=== PATIENT | female | born 1965 | race Caucasian/White ===

== ENCOUNTER 2017-01-03 12:32 | Observation (INO) | payer BC ==
[~2017-01-03] VITALS: Ht 162.6 cm; Wt 73.1 kg
[~2017-01-03 12:32] MED LIST: ASCA500 PO; CBD OIL SL; CHOL1TAB46 PO; COEN100C11 PO; EPP3/2 IM; GABA-113 PO; KLN5X PO; LIRA18IN SQ; MAGNESIUM MALATE PO; METF-384 PO; METO-217 PO; PROB1TAB16 PO; TRAZ-120 PO; omega 3 PO
[2017-01-03] MEDS ORDERED: SODIUM CHLORIDE 0.9% 1000ML 1,000 ML IV SCH (13:17)
[2017-01-03 13:46] LABS: BASO % 0.7 %; BASO ABS # 0.03 K/uL (0-0.2); COMPLETE YES; HEMATOCRIT 37.9 % (37-47); LYMPH % 44.6 %; LYMPH ABS # 1.91 K/uL (1.2-3.4); MEAN CELL VOLUME 83.3 fL (80-100); MEAN CORPUSCULAR HEMOGLOBIN 27.9 pg (25-34); MEAN CORPUSCULAR HGB CONC 33.5 g/dl (32-36); MEAN PLATELET VOLUME 10.3 fL (7.4-10.4); MONO % 5.8 %; NEUT % 45.9 %; PLATELET COUNT 187 K/uL (130-400); RED BLOOD COUNT 4.55 M/uL (4.2-5.4); WHITE BLOOD COUNT 4.28 K/uL (4.8-10.8)
--- NOTE | 2017-01-03 13:46 | DIAGNOSTIC IMAGING REPORT ---
CHEST ONE VIEW PORTABLE CLINICAL HISTORY: Chest pain, dyspnea dyspnea COMPARISON STUDY: 11/16/2015 FINDINGS: The bones soft tissues and hemidiaphragms are normal. The cardiomediastinal silhouette is normal. The lungs are clear. The pulmonary vasculature is normal. IMPRESSION: Negative chest. Electronically signed by: Diony London M.D. 01/03/2017 1:44 PM Dictated Date/Time: 01/03/2017 1:44 PM
--- NOTE | 2017-01-03 13:56 | DIAGNOSTIC IMAGING REPORT ---
CT OF THE HEAD WITHOUT CONTRAST CLINICAL HISTORY: Stroke. Facial numbness and tingling. COMPARISON STUDY: No previous studies for comparison. CT DOSE: 537.48 mGy.cm TECHNIQUE: Helical axial images of the head were obtained without IV contrast. Automated exposure control was utilized for the study. FINDINGS: No acute intracranial hemorrhage, midline shift or mass effect is present. Ventricular system is normal. Basilar cisterns are patent. There are no extra-axial collections. Guthrie-white differentiation is maintained. There are no findings to suggest acute dural sinus thrombosis or acute territorial infarct. There are no significant calvarial abnormalities. Visualized portions of the sinuses and the mastoid air cells are clear. IMPRESSION: No acute intracranial findings. Electronically signed by: Jesse Chávez M.D. 01/03/2017 1:54 PM Dictated Date/Time: 01/03/2017 1:50 PM
[2017-01-03 14:08] LABS: INR 0.9 (0.9-1.1); PARTIAL THROMBOPLASTIN RATIO 0.9; PROTHROMBIN TIME (PATIENT) 10.1 SECONDS (9.0-12.0)
[2017-01-03 14:10] LABS: BLOOD UREA NITROGEN 6 mg/dl (7-18); BUN/CREATININE RATIO 7.4 (10-20); CALCIUM 8.9 mg/dl (8.5-10.1); CARBON DIOXIDE 28 mmol/L (21-32); CHLORIDE 104 mmol/L (98-107); CREATININE 0.82 mg/dl (0.60-1.20); GLUCOSE 221 mg/dl (70-99); POTASSIUM 3.7 mmol/L (3.5-5.1); SODIUM 140 mmol/L (136-145)
[2017-01-03 14:12] LABS: URINE APPEARANCE CLEAR (CLEAR); URINE BILIRUBIN NEG (NEG); URINE COLOR YELLOW; URINE EPITHELIAL CELL AUTO 20-30 /lpf (0-5); URINE NITRITE NEG (NEG); URINE PH 7.5 (4.5-7.5); URINE SPECIFIC GRAVITY 1.009 (1.000-1.030); UROBILINOGEN NEG (NEG); ZZUR CULT IF INDIC CLEAN CATCH NO
[2017-01-03 14:13] LABS: MANUAL MICROSCOPIC REQUIRED? NO; REVIEW REQ? NO
--- NOTE | 2017-01-03 14:21 | DIAGNOSTIC IMAGING REPORT ---
Venous Doppler left leg LEFT VENOUS DOPP LOWER EXT UNILAT CLINICAL HISTORY: Left let pain, no trauma pain. Edema. TECHNIQUE: Venous Doppler COMPARISON STUDY: None FINDINGS: Normal study IMPRESSION: Normal study Electronically signed by: Diony London M.D. 01/03/2017 2:19 PM Dictated Date/Time: 01/03/2017 2:18 PM
[2017-01-03] MEDS ORDERED: MULTTAB58 PO (14:45)
[2017-01-03] MEDS ORDERED: OMEG12006 PO (14:45)
[2017-01-03 14:49] LABS: LYME DISEASE AB IGG NEG (NEG)
[2017-01-03 14:52] LABS: LYME DISEASE AB IGM NEG (NEG)
[2017-01-03] MEDS ORDERED: NITROGLYCERIN 0.4 MG SL PER TAB CHARGE SL PRN (15:30)
[2017-01-03] MEDS ORDERED: ALUMINUM/MAGNESIUM/SIMETH (MAALOX MAX) 30 ML UDC PO PRN (15:30)
[2017-01-03] MEDS ORDERED: ACETAMINOPHEN 325 MG TAB PO PRN (15:30)
[2017-01-03] MEDS ORDERED: MAGNESIUM HYDROXIDE SUSP 30 ML UDC PO PRN (15:30)
[2017-01-03] MEDS ORDERED: ONDANSETRON INJ 2 MG/ML 2 ML VIAL IV PRN (15:30)
[2017-01-03] MEDS ORDERED: POLYETHYLENE (MIRALAX) 17 GM PACK PO PRN (15:30)
[2017-01-03] MEDS ORDERED: ACETAMINOPHEN 325 MG TAB ONE (15:53)
--- NOTE | 2017-01-03 16:11 | History and Physical ---
History & Physical Date & Time of Service: January 03, 2017 at 15:42 Chief Complaint: Numbness/Tingling Face/L Side Joint Pain, Fatigue, Primary Care Physician: Dane Reddy D.O. History of Present Illness Source: patient, family Patient is a pleasant 51 y/o female, with PMHx of lyme disease w/ carditis, chronic pain disorder, depression and T2DM who presented to the ED because of body numbness/tingling and left-sided facial numbness. Patient admits to complete left sided facial numbness, stating "it feels like I was injected with lidocaine and it is wearing off." Facial symptoms began today. Patient was diagnosed with lyme disease in 2013. Since that time, patient has been experiencing chronic total body pain. However, patient states that over the last couple of months, pain has started to worsen. Then, over the last three days, she has noticed the pain becoming very severe. Patient admits to numbness and tingling of the left side of the body. However, she states that the left- sided numbness and tingling is today. Over the last couple of days, it was on both sides of the body. She figured it was just a flare of her chronic pain, until today when she experienced left sided facial numbness, which is what prompted her to come to the ED. According to the , patient was having difficulty ambulating today. She admits to difficulty with focusing. She denies any recent illnesses. She denies history of DVT/PE, TIA/CVA. She denies any confusion, vision changes, speech difficulty, facial droop. +epigastric/central chest discomfort; this has been ongoing for patient for a couple of months now. Pain does not radiate. She denies any alleviating/aggravating factors. +nausea. +worsening body aches/pain. She denies any recent tick bites or rashes. Patient denies any fever, chills, sweats, lightheadedness, dizziness, vision changes, palpitations, edema, SOB, wheezing, cough, vomiting, diarrhea, urinary symptoms , melena, anxiety/depression, active bleeding, or new skin discoloration/ changes. Past Medical/Surgical History Medical Problems: lyme disease w/ carditis chronic pain disorder T2DM depression Surgical Problems: (1) Hx of cardiac cath Status: Chronic (2) S/P cholecystectomy Status: Chronic (3) S/P partial colectomy Permanent Comment: For Diverticulum 2013 Status: Chronic (4) S/P tubal ligation Status: Chronic Family History Cancer FATHER Diabetes mellitus FATHER MOTHER SISTER FH: heart disease FATHER FHx: gallbladder disease FHx: lung disease MOTHER Hypertension FATHER MOTHER Kidney disease Kidney stones Social History Smoking Status: Never Smoker Drug Use: none Marital Status: Housing status: lives with family Occupational Status: unemployed Allergies Coded Allergies: Bee Venom (Verified Allergy, Severe, LOCALIZED SWELLING, 01/03/17) Moxifloxacin (Verified Allergy, Mild, RASH, 01/03/17) Home Medications Scheduled Ascorbic Acid (Vitamin C), 1,000 MG PO QDL Cholecalciferol (Vitamin D3), 5,000 UNITS PO DAILY Clonazepam (Clonazepam), 0.5 MG PO HS Coenzyme Q10 (Ubidecarenone) (Coq-10), 100 MG PO QDL Epinephrine (Epipen), 0.3 MG IM UD Gabapentin (Neurontin), 600 MG PO TID Liraglutide (Victoza), 1.8 SQ QAM Metformin Hcl (Glucophage), 1,000 MG PO BID Metoprolol Succinate (Toprol Xl), 50 MG PO DAILY Multiple Vitamin (Multivitamin), 1 TAB PO DAILY Coventry-3 Fatty Acids (Coventry 3), 1 CAP PO DAILY Probiotic Product (Probiotic), 2 TAB PO QAM Trazodone Hcl (Desyrel), 50 MG PO HS Physical Exam Vital Signs Date Time Temp Pulse Resp B/P Pulse Ox O2 Delivery O2 Flow Rate FiO2 01/03/17 15:16 99 01/03/17 14:54 96 132/92 95 01/03/17 13:57 97 Room Air 01/03/17 12:40 36.6 102 16 136/87 96 Room Air General Appearance: no apparent distress Head: normocephalic, atraumatic Eyes: normal inspection, PERRL ENT: hearing grossly normal Neck: supple Respiratory/Chest: lungs clear, no respiratory distress, no accessory muscle use Cardiovascular: regular rate, rhythm Abdomen/GI: normal bowel sounds, non tender, soft Extremities/Musculoskelatal: no calf tenderness, no pedal edema Neurologic/Psych: no motor/sensory deficits, alert, normal mood/affect, oriented x 3 Skin: normal color, warm/dry, no rash Diagnostics Laboratory Results Results Past 24 Hours Test 5/12/17 13:30 01/03/17 13:31 01/03/17 13:32 01/03/17 13:40 Range/Units White Blood Count 4.28 4.8-10.8 K/uL Red Blood Count 4.55 4.2-5.4 M/uL Hemoglobin 12.7 12.0-16.0 g/dL Hematocrit 37.9 37-47 % Mean Corpuscular Volume 83.3 80-100 fL Mean Corpuscular Hemoglobin 27.9 25-34 pg Mean Corpuscular Hemoglobin Concent 33.5 32-36 g/dl Platelet Count 187 130-400 K/uL Mean Platelet Volume 10.3 7.4-10.4 fL Neutrophils (%) (Auto) 45.9 % Lymphocytes (%) (Auto) 44.6 % Monocytes (%) (Auto) 5.8 % Eosinophils (%) (Auto) 3.0 % Basophils (%) (Auto) 0.7 % Neutrophils # (Auto) 1.96 1.4-6.5 K/uL Lymphocytes # (Auto) 1.91 1.2-3.4 K/uL Monocytes # (Auto) 0.25 0.11-0.59 K/uL Eosinophils # (Auto) 0.13 0-0.5 K/uL Basophils # (Auto) 0.03 0-0.2 K/uL RDW Standard Deviation 37.4 36.4-46.3 fL RDW Coefficient of Variation 12.3 11.5-14.5 % Immature Granulocyte % (Auto) 0.0 % Immature Granulocyte # (Auto) 0.00 0.00-0.02 K/uL Prothrombin Time 10.1 9.0-12.0 SECONDS Prothromb Time International Ratio 0.9 0.9-1.1 Activated Partial Thromboplast Time 22.5 21.0-31.0 SECONDS Partial Thromboplastin Ratio 0.9 D-Dimer < 190 0-500 ug/L FEU Sodium Level 140 136-145 mmol/L Potassium Level 3.7 3.5-5.1 mmol/L Chloride Level 104 98-107 mmol/L Carbon Dioxide Level 28 21-32 mmol/L Anion Gap 8.0 3-11 mmol/L Blood Urea Nitrogen 6 7-18 mg/dl Creatinine 0.82 0.60-1.20 mg/dl Est Creatinine Clear Calc Drug Dose 80.4 ml/min Estimated GFR () 96.7 Estimated GFR (Non- 83.4 BUN/Creatinine Ratio 7.4 10-20 Random Glucose 221 70-99 mg/dl Calcium Level 8.9 8.5-10.1 mg/dl Total Creatine Kinase 52 26-192 U/L Creatine Kinase MB < 0.5 0.5-3.6 ng/ml Creatine Kinase MB Ratio 0-3.0 Troponin I < 0.015 0-0.045 ng/ml Lyme Disease IgG Antibody NEG NEG Lyme Disease IgM Antibody NEG NEG Bedside Prothrombin Time INR 0.9 0.9-1.1 Bedside Glucose 213 70-90 mg/dl Urine Color YELLOW Urine Appearance CLEAR CLEAR Urine pH 7.5 4.5-7.5 Urine Specific [place] 1.009 1.000-1.030 Urine Protein NEG NEG Urine Glucose (UA) NEG NEG Urine Ketones NEG NEG Urine Occult Blood NEG NEG Urine Nitrite NEG NEG Urine Bilirubin NEG NEG Urine Urobilinogen NEG NEG Urine Leukocyte Esterase MODERATE NEG Urine WBC (Auto) 1-5 0-5 /hpf Urine RBC (Auto) 0-4 0-4 /hpf Urine Hyaline Casts (Auto) 0 0-5 /lpf Urine Epithelial Cells (Auto) 20-30 0-5 /lpf Urine Bacteria (Auto) NEG NEG Urine Test NEG NEG Diagnostic Radiology Venous Doppler left leg LEFT VENOUS DOPP LOWER EXT UNILAT CLINICAL HISTORY: Left let pain, no trauma pain. Edema. TECHNIQUE: Venous Doppler COMPARISON STUDY: None FINDINGS: Normal study IMPRESSION: Normal study Electronically signed by: Diony London M.D. 01/03/2017 2:19 PM Dictated Date/Time: 01/03/2017 2:18 PM The status of this report is Signed. Draft = Not yet reviewed or approved by Radiologist. Signed = Reviewed and approved by Radiologist. CT OF THE HEAD WITHOUT CONTRAST CLINICAL HISTORY: Stroke. Facial numbness and tingling. COMPARISON STUDY: No previous studies for comparison. CT DOSE: 537.48 mGy.cm TECHNIQUE: Helical axial images of the head were obtained without IV contrast. Automated exposure control was utilized for the study. FINDINGS: No acute intracranial hemorrhage, midline shift or mass effect is present. Ventricular system is normal. Basilar cisterns are patent. There are no extra-axial collections. Guthrie-white differentiation is maintained. There are no findings to suggest acute dural sinus thrombosis or acute territorial infarct. There are no significant calvarial abnormalities. Visualized portions of the sinuses and the mastoid air cells are clear. IMPRESSION: No acute intracranial findings. Electronically signed by: Jesse Chávez M.D. 01/03/2017 1:54 PM Dictated Date/Time: 01/03/2017 1:50 PM The status of this report is Signed. Draft = Not yet reviewed or approved by Radiologist. Signed = Reviewed and approved by Radiologist. CHEST ONE VIEW PORTABLE CLINICAL HISTORY: Chest pain, dyspnea dyspnea COMPARISON STUDY: 11/16/2015 FINDINGS: The bones soft tissues and hemidiaphragms are normal. The cardiomediastinal silhouette is normal. The lungs are clear. The pulmonary vasculature is normal. IMPRESSION: Negative chest. Electronically signed by: Diony London M.D. 01/03/2017 1:44 PM Dictated Date/Time: 01/03/2017 1:44 PM The status of this report is Signed. Draft = Not yet reviewed or approved by Radiologist. Signed = Reviewed and approved by Radiologist. EKG SVEN PATEL ID:[id number] 03-JAN-2017 13:53:56 [facility] Normal sinus rhythm Low voltage QRS Borderline ECG When compared with ECG of 16-AUG-2016 08:27, No significant change was found 25mm/s 10mm/mV 150Hz 8.0 SP2 12SL 241 RACHNA: 13 Referred by: Referred Self Unconfirmed Vent. rate 99 BPM PA interval 172 ms QRS duration 78 ms QT/QTc 372/477 ms P-R-T axes 27 34 47 1965 (51 yr) Female 1lb Room: Loc:15 Restaurant Line Cook:CLAIR Perez ind: Impression Assessment and Plan 51 y/o female, with PMHx of lyme disease w/ carditis, chronic pain disorder, depression and T2DM who presented to the ED because of body numbness/tingling and left-sided facial numbness. Numbness/tingling and left sided facial numbness, ?secondary to TIA/CVA vs. lyme disas: - Admit to tele observation for cardiac monitoring - Trend cardiac enzymes- initial trop negative - CT of head and CXR- unremarkable - Obtain brain MRI - Lower extremity US- negative for DVT - Lyme IgG and IgM- negative - UA unremarkable - Neuro checks q4 hrs - Check b12/folate, TSH, CRP, and ESR - PT/OT evaluations - Consult neurology, appreciate recommendations - Consult ID, appreciate recommendations T2DM: - Hold Metformin 1000 mg BID - BSG ACHS w/ sliding insulin scale - Check ha1c h/o lyme disease w/ lyme carditis: - Metoprolol 50 mg daily - Obtain ECHO Chronic pain disorder: - Continue Gabapentin 600 mg TID Depression: Clonazepam 0.5 mg HS, Trazodone 50 mg HS GI Prophylaxis: Protonix daily, Maalox PRN, IV Zofran PRN, Colace and/or Milk of Mag PRN DVT prophylaxis: Lovenox 40 mg SQ q24 hrs, VALERIA and SCDs Code Status: LEVEL I, FULL Dispo: From home, lives w/ family- no discharge needs anticipated Level of Care Telemetry Resuscitation Status FULL RESUSCITATION VTE Prophylaxis VTE Risk Assessment Done? Y/N: Yes Risk Level: Moderate Given or contraindicated: Enoxaparin (Lovenox)SQ, T.E.D. Stockings, SCD's
[2017-01-03] MEDS ORDERED: LORAZEPAM 2 MG/ML 1 ML VIAL IV ONE (16:30)
[2017-01-03] MEDS: INSULIN ASPART 100 UNITS/ML 3 ML PEN SC SCH ×2 (16:30→21:13)
[2017-01-03] MEDS ORDERED: GLUCOSE 40% GEL 15 GM TUBE PO PRN (16:45)
[2017-01-03] MEDS ORDERED: GLUCOSE 10 TABS/TUBE PO PRN (16:45)
[2017-01-03] MEDS ORDERED: GLUCAGON FOR INJ 1 MG VIAL SQ PRN (16:45)
[2017-01-03] MEDS ORDERED: DEXTROSE 50% 50 ML SYR IV PRN (16:45)
[2017-01-03] MEDS ORDERED: IV FLUIDS COMPLETED PRN (17:15)
[2017-01-03] MEDS ORDERED: GADAVIST IV PRN (17:15)
--- NOTE | 2017-01-03 17:23 | DIAGNOSTIC IMAGING REPORT ---
Brain MRI WITH AND WITHOUT CONTRAST HISTORY: left body numbness TECHNIQUE: Multiplanar multisequence MRI of the brain was performed both before and after the intravenous administration of contrast. COMPARISON STUDY: Head CT 01/03/2017. FINDINGS: There are no areas of restricted diffusion to suggest acute infarction. The midline structures are intact. The paranasal sinuses are clear. The mastoid air cells are clear. The ventricles and sulci are within normal limits for age. There is no mass, hematoma, midline shift. The major vascular flow-voids at the skull base are well maintained. Postcontrast sequences show no areas of abnormal enhancement. IMPRESSION: No acute intracranial abnormality. Electronically signed by: Mehdi Culp M.D. 01/03/2017 5:22 PM Dictated Date/Time: 01/03/2017 5:18 PM
[2017-01-03] MEDS ORDERED: NURSING VERBAL MED ORDER ONE ×3 (18:00→21:45)
[2017-01-03] MEDS ORDERED: NAPROXEN 250 MG TAB PO PRN (18:15)
[2017-01-03 18:21] VITALS: BP 127/85; PULSE 98; TEMP 36.4; O2SAT 98; Ht 162.6 cm; Wt 73.1 kg
[2017-01-03] MEDS: TRAZODONE HCL 50 MG TAB PO SCH (20:22)
[2017-01-03] MEDS: GABAPENTIN 600 MG TAB PO SCH (20:22)
[2017-01-03] MEDS: CLONAZEPAM 0.5 MG TAB PO SCH (20:24)
[2017-01-03] MEDS ORDERED: PNEUMOCOCCAL POLYSACCHARIDES 25 MCG/0.5 ML VIAL/SYR IM. ONE (21:00)
[2017-01-03] MEDS ORDERED: PNEUMOCOCCAL ADMINISTRATION CHARGE ONE (21:00)
[2017-01-03] MEDS: ENOXAPARIN 40 MG/0.4 ML SYR SQ SCH (21:00)
[2017-01-03] MEDS ORDERED: HEPARIN SOD 5000 UNIT/0.5 ML CARP SQ SCH (21:00)
[2017-01-03] MEDS: TRAMADOL HCL 50 MG TAB PO PRN (21:54)
[2017-01-03 23:30] VITALS: BP 109/75; PULSE 94; TEMP 36.5; O2SAT 97
--- NOTE | 2017-01-03 23:36 | EMERGENCY ROOM VISIT NOTE ---
History First contact with patient: 13:00 Chief Complaint: ILLNESS Stated Complaint: STROKE-LIKE SYMPTOMS History of Present Illness The patient is a 51 year old female who presents to the Emergency Room via private vehicle coming by with complaints of "numbness/tingling face, left side joint pain, fatigue". The patient states that she is here because she is concerned about the numbness in left side of her face which began 4-5 days ago. She notes that it was across the lower portion of her face, and yesterday seemed dissipate, however it worsened again last night. She states that she also has intense pain in the bilateral legs, left worse than right. She notes the pain as a crushing sensation. She also felt like someone was standing on her leg. She then states that today she felt like there was novocaine injected in the left side of her face, and shooting pain in her left leg down to her foot and her feet feel cold. She notes that she has never had this before, and denies any numbness or weakness in the past. She also felt like the left side of her face looked on, and discolored as well as her eye was also cold. She states that she has a significant history of Lyme carditis, as well as idiopathic heart failure. She has been pulse dosed on medication by a doctor from [facility] for chronic Lyme disease. She is not taking any medication currently for the Lyme disease. There is associated chest pain, which is a tightness under the epigastric region that started a few weeks ago. There is also associated shortness of breath also which began many weeks ago. The patient denies any history of blood clots, abdominal pain, recent falls or injuries, history of stroke. Review of Systems A complete 10-point Review of Systems was discussed with the patient, with pertinent positives and negatives listed in the History of Present Illness. All remaining Review of Systems questions can be considered negative unless otherwise specified. Past Medical/Surgical History Medical Problems: (1) Depression (2) Diabetes mellitus type 2 in nonobese (3) Fibromyalgia (4) HTN (hypertension) (5) Hypotension, iatrogenic (6) Lyme disease (7) Stroke-like symptoms (8) Tachycardia (9) Total body pain Surgical Problems: (1) Hx of cardiac cath (2) S/P cholecystectomy (3) S/P partial colectomy (4) S/P tubal ligation Family History Cancer FATHER Diabetes mellitus FATHER MOTHER SISTER FH: heart disease FATHER FHx: gallbladder disease FHx: lung disease MOTHER Hypertension FATHER MOTHER Kidney disease Kidney stones Social History Smoking Status: Unknown if Ever Smoked Alcohol Use: none Drug Use: none Marital Status: Housing Status: lives with family Occupation Status: unemployed Current/Historical Medications Scheduled Ascorbic Acid (Vitamin C), 1,000 MG PO QDL Cholecalciferol (Vitamin D3), 5,000 UNITS PO DAILY Clonazepam (Clonazepam), 0.5 MG PO HS Coenzyme Q10 (Ubidecarenone) (Coq-10), 100 MG PO QDL Epinephrine (Epipen), 0.3 MG IM UD Gabapentin (Neurontin), 600 MG PO TID Liraglutide (Victoza), 1.8 SQ QAM Metformin Hcl (Glucophage), 1,000 MG PO BID Metoprolol Succinate (Toprol Xl), 50 MG PO DAILY Multiple Vitamin (Multivitamin), 1 TAB PO DAILY [place]-3 Fatty Acids ([place] 3), 1 CAP PO DAILY Probiotic Product (Probiotic), 2 TAB PO QAM Trazodone Hcl (Desyrel), 50 MG PO HS Allergies Coded Allergies: Bee Venom (Verified Allergy, Severe, LOCALIZED SWELLING, 01/03/17) Moxifloxacin (Verified Allergy, Mild, RASH, 01/03/17) Physical Exam Vital Signs Date Time Temp Pulse Resp B/P Pulse Ox O2 Delivery O2 Flow Rate FiO2 01/03/17 16:00 149/87 01/03/17 15:52 94 17 98 01/03/17 15:37 95 22 98 01/03/17 15:32 103 20 97 01/03/17 15:30 155/92 01/03/17 15:16 99 01/03/17 15:00 131/88 01/03/17 14:54 96 132/92 95 01/03/17 13:57 97 Room Air 01/03/17 12:40 36.6 102 16 136/87 96 Room Air Pain Rating (0-10): 7.0 Physical Exam VITAL SIGNS - Vital signs and nursing notes were reviewed. Patient is afebrile , normotensive, and tachycardic at a rate of 102 bpm, and is saturating well on room air 96%. GENERAL -51-year-old female appearing her stated age who is in no acute distress. Communicates well with provider and answers questions appropriately. SKIN - Without rashes. HEAD - NC/AT. EYES - PERRL with EOMI bilaterally. Sclera anicteric. Palpebral conjunctiva pink and moist with no injection noted. EARS - No deformities of external structures noted on gross examination bilaterally. No pain elicited with palpation of the tragus bilaterally. External auditory canals without discharge or otorrhea. Tympanic membranes pearly guthrie without retraction or bulging. No fluid or purulent material visualized behind the TM. Handle of malleus, umbo, cone of light, pars tensa/ flaccid all easily visualized. NOSE - Midline and without cyanosis. No epistaxis or purulent drainage noted. Septum midline without deviation or septal hematoma noted. MOUTH/OROPHARYNX - Without perioral cyanosis. Buccal mucosa pink and moist and without leukoplakia. Tongue midline with equal elevation of palate bilaterally. No tonsillar hypertrophy, erythema, or exudates noted. [] dentition noted. NECK - Neck with FROM. Supple to palpation. No lymphadenopathy noted. No nuchal rigidity. LUNGS - Chest wall symmetric without accessory muscle use, intercostals retractions, or central cyanosis. Normal vesicular breath sounds CTA B/L. No wheezes, rales, or rhonchi appreciated. CARDIAC - RRR with S1/S2. No murmur, rubs, or gallops appreciated. ABDOMEN - Abdominal contour without pulsations or visible masses. BS normoactive all four quadrants. No tenderness, palpable masses, hepatosplenomegaly, or ascites noted. EXTREMITIES - No clubbing or peripheral cyanosis. No pretibial edema present. +3 /5 radial, posterior tibial, and dorsalis pedis pulses palpated throughout. +5/ 5 strength noted in UE/LE bilaterally. Print Finisher strength symmetric bilaterally. NEUROLOGIC - Cranial nerves II through XII grossly intact. Sensory intact to light touch throughout. Unable to elicit patellar reflexes. PSYCH - Pt is very pleasant and interacts well with examiner. Medical Decision & Procedures ER Provider Diagnostic Interpretation: CHEST ONE VIEW PORTABLE CLINICAL HISTORY: Chest pain, dyspnea dyspnea COMPARISON STUDY: 11/16/2015 FINDINGS: The bones soft tissues and hemidiaphragms are normal. The cardiomediastinal silhouette is normal. The lungs are clear. The pulmonary vasculature is normal. IMPRESSION: Negative chest. Electronically signed by: Diony London M.D. 01/03/2017 1:44 PM Dictated Date/Time: 01/03/2017 1:[address] OF THE HEAD WITHOUT CONTRAST CLINICAL HISTORY: Stroke. Facial numbness and tingling. COMPARISON STUDY: No previous studies for comparison. CT DOSE: 537.48 mGy.cm TECHNIQUE: Helical axial images of the head were obtained without IV contrast. Automated exposure control was utilized for the study. FINDINGS: No acute intracranial hemorrhage, midline shift or mass effect is present. Ventricular system is normal. Basilar cisterns are patent. There are no extra-axial collections. Guthrie-white differentiation is maintained. There are no findings to suggest acute dural sinus thrombosis or acute territorial infarct. There are no significant calvarial abnormalities. Visualized portions of the sinuses and the mastoid air cells are clear. IMPRESSION: No acute intracranial findings. Electronically signed by: Jesse Chávez M.D. 01/03/2017 1:54 PM Venous Doppler left leg LEFT VENOUS DOPP LOWER EXT UNILAT CLINICAL HISTORY: Left let pain, no trauma pain. Edema. TECHNIQUE: Venous Doppler COMPARISON STUDY: None FINDINGS: Normal study IMPRESSION: Normal study Electronically signed by: Diony London M.D. 01/03/2017 2:19 PM Dictated Date/Time: 01/03/2017 2:18 PM Laboratory Results 01/03/17 13:30 Red Blood Count 4.55, Mean Corpuscular Volume 83.3, Mean Corpuscular Hemoglobin 27.9, Mean Corpuscular Hemoglobin Concent 33.5, Mean Platelet Volume 10.3, Neutrophils (%) (Auto) 45.9, Lymphocytes (%) (Auto) 44.6, Monocytes (%) (Auto) 5.8, Eosinophils (%) (Auto) 3.0, Basophils (%) (Auto) 0.7, Neutrophils # (Auto) 1.96, Lymphocytes # (Auto) 1.91, Monocytes # (Auto) 0.25, Eosinophils # (Auto) 0.13, Basophils # (Auto) 0.03 01/03/17 13:30 Test 01/03/17 13:30 01/03/17 13:31 01/03/17 13:40 White Blood Count 4.28 K/uL (4.8-10.8) Red Blood Count 4.55 M/uL (4.2-5.4) Hemoglobin 12.7 g/dL (12.0-16.0) Hematocrit 37.9 % (37-47) Mean Corpuscular Volume 83.3 fL (80-100) Mean Corpuscular Hemoglobin 27.9 pg (25-34) Mean Corpuscular Hemoglobin Concent 33.5 g/dl (32-36) Platelet Count 187 K/uL (130-400) Mean Platelet Volume 10.3 fL (7.4-10.4) Neutrophils (%) (Auto) 45.9 % Lymphocytes (%) (Auto) 44.6 % Monocytes (%) (Auto) 5.8 % Eosinophils (%) (Auto) 3.0 % Basophils (%) (Auto) 0.7 % Neutrophils # (Auto) 1.96 K/uL (1.4-6.5) Lymphocytes # (Auto) 1.91 K/uL (1.2-3.4) Monocytes # (Auto) 0.25 K/uL (0.11-0.59) Eosinophils # (Auto) 0.13 K/uL (0-0.5) Basophils # (Auto) 0.03 K/uL (0-0.2) RDW Standard Deviation 37.4 fL (36.4-46.3) RDW Coefficient of Variation 12.3 % (11.5-14.5) Immature Granulocyte % (Auto) 0.0 % Immature Granulocyte # (Auto) 0.00 K/uL (0.00-0.02) Prothrombin Time 10.1 SECONDS (9.0-12.0) Prothromb Time International Ratio 0.9 (0.9-1.1) Activated Partial Thromboplast Time 22.5 SECONDS (21.0-31.0) Partial Thromboplastin Ratio 0.9 D-Dimer < 190 ug/L FEU (0-500) Anion Gap 8.0 mmol/L (3-11) Est Creatinine Clear Calc Drug Dose 80.4 ml/min Estimated GFR () 96.7 Estimated GFR (Non- 83.4 BUN/Creatinine Ratio 7.4 (10-20) Calcium Level 8.9 mg/dl (8.5-10.1) Total Creatine Kinase 52 U/L (26-192) Lyme Disease IgG Antibody NEG (NEG) Lyme Disease IgM Antibody NEG (NEG) Bedside Prothrombin Time INR 0.9 (0.9-1.1) Urine Color YELLOW Urine Appearance CLEAR (CLEAR) Urine pH 7.5 (4.5-7.5) Urine Specific [place] 1.009 (1.000-1.030) Urine Protein NEG (NEG) Urine Glucose (UA) NEG (NEG) Urine Ketones NEG (NEG) Urine Occult Blood NEG (NEG) Urine Nitrite NEG (NEG) Urine Bilirubin NEG (NEG) Urine Urobilinogen NEG (NEG) Urine Leukocyte Esterase MODERATE (NEG) Urine WBC (Auto) 1-5 /hpf (0-5) Urine RBC (Auto) 0-4 /hpf (0-4) Urine Hyaline Casts (Auto) 0 /lpf (0-5) Urine Epithelial Cells (Auto) 20-30 /lpf (0-5) Urine Bacteria (Auto) NEG (NEG) Urine Test NEG (NEG) Medications Administered Medications (Trade) Dose Ordered Sig/Radha Route Start Time Stop Time Status Last Admin Dose Admin Sodium Chloride (Nss 1000ml) 1,000 ml @ 50 mls/hr Q20H IV 01/03/17 13:17 01/03/17 17:48 DC 01/03/17 14:52 50 MLS/HR Insulin Aspart (novoLOG ASPART) SLIDING SCALE G... ACHS SC 01/03/17 16:00 02/02/17 15:59 01/03/17 21:13 2 UNITS Acetaminophen (Tylenol Tab) 650 mg STK-MED ONCE .ROUTE 01/03/17 15:53 01/03/17 15:54 DC 01/03/17 15:55 650 MG Medical Decision Patient was seen and evaluated as above. After obtaining a thorough history and physical examination IV access was initiated and the above workup was performed. Stat CT of the head was obtained, and stroke workup was also initiated. Patient has had symptoms for duration of time of which is greater than any indication for TPA. CBC reveals white blood cell count low at 4.28, otherwise unremarkable. Coagulation studies unremarkable. D-dimer negative. CMP reveals BUN low at 6, glucose of 221, otherwise unremarkable. Troponin negative. Urine with moderate leukocytes, and 20-30 epithelial cells, urine test negative. Lyme screen is negative. The patient and state that Lyme screen sent been negative 5, despite positive tests intermittently. CT scan of the head, chest x-ray and ultrasound left lower extremity secondary to leg pain was also negative. Results of these as above. I agree with radiologist findings. I concerned that the patient at this time is either experiencing a TIA, or perhaps Lyme induced symptomatology of which will need further workup. The case was discussed with my attending, and subsequently with the hospitalist. Please refer to further documentation regarding the patient's stay. In evaluation treatment this patient following differential diagnoses were entertained: Lyme carditis, CVA, TIA, AL, PE, migraine, acute intracranial abnormality, among others. Impression Primary Impression: Chest pain Additional Impression: Stroke-like symptoms Departure Information Dispostion Admitted as an inpatient Condition FAIR Referrals Dane Reddy D.O. (PCP) Forms WORK / SCHOOL INSTRUCTIONS, HOME CARE DOCUMENTATION FORM, IMPORTANT VISIT INFORMATION Patient Instructions My [facility] Problem Qualifiers
[2017-01-04] VITALS (8 sets, daily range): BP systolic 101–135; BP diastolic 68–86; PULSE 100–106; TEMP 36.5–37.1; O2SAT 95–97
[2017-01-04 05:39] LABS: HEMATOCRIT 36.3 % (37-47); MEAN CELL VOLUME 84.4 fL (80-100); MEAN CORPUSCULAR HEMOGLOBIN 28.1 pg (25-34); MEAN CORPUSCULAR HGB CONC 33.3 g/dl (32-36); MEAN PLATELET VOLUME 10.1 fL (7.4-10.4); PLATELET COUNT 178 K/uL (130-400); WHITE BLOOD COUNT 4.17 K/uL (4.8-10.8)
[2017-01-04 06:05] LABS: BUN/CREATININE RATIO 13.8 (10-20); CALCIUM 8.6 mg/dl (8.5-10.1); CARBON DIOXIDE 28 mmol/L (21-32); CHLORIDE 106 mmol/L (98-107); CREATININE 0.82 mg/dl (0.60-1.20); GLUCOSE 182 mg/dl (70-99); MAGNESIUM 1.8 mg/dl (1.8-2.4); POTASSIUM 3.8 mmol/L (3.5-5.1); SODIUM 140 mmol/L (136-145)
[2017-01-04 06:16] LABS: C-REACTIVE PROTEIN < 0.29 mg/dl (0-0.29)
[2017-01-04 07:09] LABS: BLOOD UREA NITROGEN 11 mg/dl (7-18)
[2017-01-04 07:40] LABS: ESTIMATED AVERAGE GLUCOSE 220 mg/dl; HA1C FLAG Normal (Normal)
[2017-01-04] MEDS: PANTOprazole SOD 40 MG TAB PO SCH (08:50)
[2017-01-04] MEDS: MULTIVITAMIN TAB PO SCH (08:51)
[2017-01-04] MEDS: METOPROLOL SUCC 50MG EXT REL TAB PO SCH (08:51)
[2017-01-04] MEDS: GABAPENTIN 600 MG TAB PO SCH ×2 (08:51→13:54)
[2017-01-04] MEDS: INSULIN ASPART 100 UNITS/ML 3 ML PEN SC SCH ×4 (08:53→21:00)
--- NOTE | 2017-01-04 08:59 | Neurology Consultation ---
Neurology Consultation Date of Consultation: January 04, 2017. Attending Physician: Rey Lam MD, PhD Primary Care Physician: Dane Reddy D.O. Reason for Consultation: Patient is a 51-year-old, who was asked to see at the request of Eri Patel PA-C and Dr. Lam, for neurologic consultation regarding left-sided pain and numbness with multiple symptoms. History of Present Illness Source: patient, caregiver, clinic records, hospital records I first saw this patient in October 2013 as a new patient in the office. She was having roughly 5 years of chronic fatigue, generalized weakness, arthralgias, and myalgia. She had headaches as well. Testing revealed a generalized polyneuropathy and we last saw her in June 2016. Her diagnosis at that time included a left C8 cervical radiculopathy with improved headaches on topiramate. She has chronic arthralgias and myalgias over the diagnoses of fibromyalgia and has a generalized polyneuropathy secondary to diabetes. She is also diagnosed by a physician in [facility] with chronic Lyme disease and was diagnosed with Lyme carditis. She had some idiopathic heart failure. She tells me that no Lyme titer was actually positive but was diagnosed also with Babesiosis and Bartonella. She was given multiple pulses of oral antibiotics. There was discussion that the antibiotics could cross the blood brain barrier but she was never given IV Rocephin. She has not had antibiotics for at least 6 months. The patient continues with chronic symptoms. It will wax and wane but never resolved. She will have "good days", lasting up to 4-5 days, consisting of her ability to do some light routine activities and "putter" around the house or yard. She will then have "bad days", lasting up to 45 days, which consist of severe pain in her joints and spine, increased fatigue, and deep bone-like pain which make her essentially rest all day in bed or chair. This pain is very achy and intense and centers in the hips, ankles, elbows, knees as well as the low back and neck. Her muscles can be somewhat achy and she feels somewhat weak in general. She has severe fatigue and easy fatigability. Currently, she is not getting much in the way of headaches. Her mood is reasonable, especially considering her chronic symptoms, and her memory is "foggy". gabapentin is of questionable help and she has been on it for a long time. She has no double vision, incontinence of urine, or significant balance problems. Over the last 3 months she's had increased pain and tingling in her limbs bilaterally she has had increased fatigue as well. Over the last 4-5 days she' s had intense pain in the legs of a crushing variety left greater than right side. There is a mild increased pain in the arms left greater than right side but no face pain. She's had increase in numbness and tingling in her left face and the left arm and leg. It is not on the right side. The numbness and tingling was quite intense on the morning of January 03 when she awoke. She arrived at the emergency room on January 03 at 1240 hours with a temperature 36.6, pulse 102, respiratory rate 16, blood pressure 136/87, and O2 saturation 96%. Neurologic examination was described as unremarkable. Chest x-ray was unremarkable. CT scan of the head showed no acute changes. Left lower extremity venous Doppler was unremarkable. CBC was normal and a sedimentation rate was 2. Chem profile was unremarkable except for glucose of 213. TSH was normal at 3.3 and Lyme antibody titers, IgM and IgG, or negative. MRI of the brain was unremarkable with no stroke or abnormality seen. I reviewed this film and concur. She feels better this morning. She has much improved pain on the left side and has much improved numbness. The left face has some very slight residual numbness. Past Medical/Surgical History Medical Problems: (1) Chest pain Status: Acute (2) Exertional dyspnea Status: Acute (3) Weakness Status: Acute Diabetes on oral medication Hypertension History of chronic Lyme disease and Lyme carditis post antibiotic treatment. History of depression currently improved History of severe headaches, currently improved Post left breast biopsy, benign, cholecystectomy, tubal ligation, left shoulder arthroscopically in July 2016 and right ovarian cystectomy in 2012 Family History Mother is alive at age 70 with COPD, diabetes, and hypertension. Father age 70 from myelodysplastic syndrome. He also had history of colon cancer, diabetes, and heart disease Social History Patient quit cigarette smoking 18 years ago. She will have 2 or 3 glasses of wine per week at most. 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 Smoking Status: Former smoker Smokeless Tobacco Use: No Alcohol Use: occasionally Drug Use: none Marital Status: Housing Status: lives with family Occupation Status: unemployed, disabled Allergies Coded Allergies: Bee Venom (Verified Allergy, Severe, LOCALIZED SWELLING, 01/03/17) Moxifloxacin (Verified Allergy, Mild, RASH, 01/03/17) Current Inpatient Medications Current Inpatient Medications Medications (Trade) Dose Ordered Sig/Radha Route Start Time Stop Time Status Last Admin Dose Admin Acetaminophen (Tylenol Tab) 650 mg Q4H PRN PO 01/03/17 15:30 02/02/17 15:29 Al Hydrox/Mg Hydrox/Simethicone (Maalox Max Susp) 15 ml Q4H PRN PO 01/03/17 15:30 02/02/17 15:29 Magnesium Hydroxide (Milk Of Magnesia Susp) 30 ml Q12H PRN PO 01/03/17 15:30 02/02/17 15:29 Ondansetron HCl (Zofran Inj) 4 mg Q6H PRN IV 01/03/17 15:30 02/02/17 15:29 Nitroglycerin (Nitrostat Tab) 0.4 mg UD PRN SL 01/03/17 15:30 02/02/17 15:29 Polyethylene (Miralax Powder Packet) 17 gm DAILY PRN PO 01/03/17 15:30 02/02/17 15:29 Ascorbic Acid (Vitamin C Tab) 1,000 mg QDL PO 01/04/17 11:00 02/03/17 10:59 Clonazepam (Klonopin Tab) 0.5 mg HS PO 01/03/17 21:00 02/02/17 20:59 01/03/17 20:24 0.5 MG Gabapentin (Neurontin Tab) 600 mg TID PO 01/03/17 21:00 02/02/17 20:59 01/03/17 20:22 600 MG Metoprolol Succinate (Toprol Xl Tab) 50 mg DAILY PO 01/04/17 09:00 02/03/17 08:59 Multivitamins (Multivitamin Tab) 1 tab DAILY PO 01/04/17 09:00 02/03/17 08:59 Trazodone HCl (Desyrel Tab) 50 mg HS PO 01/03/17 21:00 6/11/17 20:59 01/03/17 20:22 50 MG Insulin Aspart (novoLOG ASPART) SLIDING SCALE G... ACHS SC 01/03/17 16:00 02/02/17 15:59 01/03/17 21:13 2 UNITS Enoxaparin Sodium (Lovenox Inj) 40 mg QPM SQ 01/03/17 21:00 02/02/17 20:59 Pantoprazole Sodium (Protonix Tab) 40 mg QAM PO 01/04/17 09:00 02/03/17 08:59 Glucose (Glucose 40% Gel) 15-30 GRAMS 15 GRAMS... UD PRN PO 01/03/17 16:45 02/02/17 16:44 Glucose (Glucose Chew Tab) 4-8 Tablets 4 Tabl... UD PRN PO 01/03/17 16:45 02/02/17 16:44 Dextrose (Dextrose 50% 50ML Syringe) 25-50ML OF 50% DW IV FOR... UD PRN IV 01/03/17 16:45 02/02/17 16:44 Glucagon (Glucagon Inj) 1 mg UD PRN SQ 01/03/17 16:45 02/02/17 16:44 Miscellaneous (Iv Fluids Completed) 1 ea PRN PRN N/A 01/03/17 17:15 01/03/18 17:14 Gadobutrol (Gadavist) 7 mmol UD PRN IV 01/03/17 17:15 01/07/17 17:14 Naproxen (Naprosyn Tab) 500 mg Q12H PRN PO 01/03/17 18:15 02/02/17 18:14 01/03/17 18:43 500 MG Tramadol HCl (Ultram Tab) 50 mg Q4H PRN PO 01/03/17 22:00 02/02/17 21:59 01/03/17 21:54 50 MG Review of Systems Constitutional: + fatigue, + weakness, No fever Eyes: No worsening of vision ENT: No hearing loss, No trouble swallowing Respiratory: No cough, No shortness of breath Cardiovascular: No chest pain, No palpitations Abdomen: No nausea, No pain Musculoskeletal: + joint pain, + muscle pain Genitourinary - Female: No dysuria, No urinary incontinence Neurologic: + balance problems, + vertigo, No memory loss, No numbness/tingling , No weakness Psychiatric: + depression symptoms, No anxiety Endocrine: + fatigue Hematologic / Lymphatic: No abnormal bleeding/bruising Integumentary: No rash Allergic / Immunologic: No hives Physical Exam Vital Signs (Past 24 Hrs): Date Time Temp Pulse Resp B/P Pulse Ox O2 Delivery O2 Flow Rate FiO2 01/04/17 07:34 36.9 100 18 101/68 95 Room Air 01/04/17 05:06 36.6 103 20 102/70 96 Room Air 01/04/17 04:01 Room Air 01/04/17 00:06 Room Air 01/03/17 23:30 36.5 94 20 109/75 97 Room Air 01/03/17 20:38 Room Air 01/03/17 18:21 36.4 98 20 127/85 98 Room Air 01/03/17 16:22 96 18 99 01/03/17 16:07 91 16 98 01/03/17 16:00 149/87 01/03/17 15:52 94 17 98 01/03/17 15:37 95 22 98 01/03/17 15:32 103 20 97 01/03/17 15:30 155/92 01/03/17 15:16 99 01/03/17 15:00 131/88 01/03/17 14:54 96 132/92 95 01/03/17 13:57 97 Room Air 01/03/17 12:40 36.6 102 16 136/87 96 Room Air Patient is right-handed. The patient is awake and alert. Speech is normal without aphasia or dysarthria. Mentation and thought processes are intact with orientation and normal fund of knowledge. Mood and affect are normal and appropriate. Appearance and grooming are normal. The discs are sharp with positive venous pulsations. Pupils are 4mm bilaterally and reactive to light. Extraocular eye muscles are intact without nystagmus. Visual acuity and visual chávez seem normal grossly to confrontation. There is a very mild decreased sensation to pin and touch in V1 and V2 distributions of the left face. V3 is spared.. Corneal reflexes are positive bilaterally. Facial strength and symmetry is normal bilaterally. Hearing seems intact grossly to voice and finger rub. Palate moves well without asymmetry. There is normal sternocleidomastoid and trapezius strength bilaterally. Tongue is midline with good strength bilaterally. Neck is with full range of motion without discomfort. There are no cervical bruits. There are no cranial or ocular bruits. Heart is without murmur. Cervical, thoracic, and lumbar spine are tender to palpation, including the paraspinal muscles and spinous processes diffusely. Gait is narrow based but cautious. Stance with eyes open is somewhat unsteady. With outstretched arms there is no drift. There are no resting, postural, or action tremors. There is no ataxia with [id number] testing. There is good facility in the hands. There are no abnormal involuntary movements noted. Motor strength is 5/5 diffusely in the arms bilaterally including deltoids, biceps, brachioradialis, wrist flexors and extensors, supervisor laboratory animal facility, and intrinsic hand muscles. Motor strength is 5/5 diffusely in the legs bilaterally including hip flexors, quadriceps, hamstring, gastrocnemius, tibialis anterior, tibialis posterior, and peroneii muscles bilaterally. Toe extensors are normal and there is good bulk in the extensor digitorum brevis muscle bilaterally. Therefore, despite her symptoms of feeling weak, her individual muscle strength is actually intact although she has some giveaway weakness at times secondary to pain. The limbs have good tone without rigidity or spasticity, and there is no atrophy noted. Muscle bulk is normal, there is no tenderness, no myotonia noted to percussion, and no fasciculations seen. Sensory examination is intact to pin and touch throughout all four limbs. Reflexes are 1/4 in the biceps, triceps, brachioradialis, quadriceps, and Achilles tendons bilaterally. Toes are downgoing with plantar stimulation bilaterally. Peripheral pulses are present and of normal quality distally in all four limbs. There is no peripheral edema noted. Laboratory Results Past 24 Hours: 01/04/17 05:18 01/04/17 05:18 Test 01/03/17 13:30 01/03/17 13:31 01/03/17 13:40 01/04/17 05:00 Immature Granulocyte % (Auto) 0.0 % White Blood Count 4.28 K/uL (4.8-10.8) Red Blood Count 4.55 M/uL (4.2-5.4) Hemoglobin 12.7 g/dL (12.0-16.0) Hematocrit 37.9 % (37-47) Mean Corpuscular Volume 83.3 fL (80-100) Mean Corpuscular Hemoglobin 27.9 pg (25-34) Mean Corpuscular Hemoglobin Concent 33.5 g/dl (32-36) Platelet Count 187 K/uL (130-400) Mean Platelet Volume 10.3 fL (7.4-10.4) Neutrophils (%) (Auto) 45.9 % Lymphocytes (%) (Auto) 44.6 % Monocytes (%) (Auto) 5.8 % Eosinophils (%) (Auto) 3.0 % Basophils (%) (Auto) 0.7 % Neutrophils # (Auto) 1.96 K/uL (1.4-6.5) Lymphocytes # (Auto) 1.91 K/uL (1.2-3.4) Monocytes # (Auto) 0.25 K/uL (0.11-0.59) Eosinophils # (Auto) 0.13 K/uL (0-0.5) Basophils # (Auto) 0.03 K/uL (0-0.2) Immature Granulocyte # (Auto) 0.00 K/uL (0.00-0.02) Prothrombin Time 10.1 SECONDS (9.0-12.0) Prothromb Time International Ratio 0.9 (0.9-1.1) Activated Partial Thromboplast Time 22.5 SECONDS (21.0-31.0) Partial Thromboplastin Ratio 0.9 D-Dimer < 190 ug/L FEU (0-500) Total Creatine Kinase 52 U/L (26-192) Lyme Disease IgG Antibody NEG (NEG) Lyme Disease IgM Antibody NEG (NEG) Bedside Prothrombin Time INR 0.9 (0.9-1.1) Urine Color YELLOW Urine Appearance CLEAR (CLEAR) Urine pH 7.5 (4.5-7.5) Urine Specific [place] 1.009 (1.000-1.030) Urine Protein NEG (NEG) Urine Glucose (UA) NEG (NEG) Urine Ketones NEG (NEG) Urine Occult Blood NEG (NEG) Urine Nitrite NEG (NEG) Urine Bilirubin NEG (NEG) Urine Urobilinogen NEG (NEG) Urine Leukocyte Esterase MODERATE (NEG) Urine WBC (Auto) 1-5 /hpf (0-5) Urine RBC (Auto) 0-4 /hpf (0-4) Urine Hyaline Casts (Auto) 0 /lpf (0-5) Urine Epithelial Cells (Auto) 20-30 /lpf (0-5) Urine Bacteria (Auto) NEG (NEG) Urine Test NEG (NEG) Creatine Kinase MB Ratio (0-3.0) Test 01/04/17 05:18 01/04/17 07:26 Red Blood Count 4.30 M/uL (4.2-5.4) Mean Corpuscular Volume 84.4 fL (80-100) Mean Corpuscular Hemoglobin 28.1 pg (25-34) Mean Corpuscular Hemoglobin Concent 33.3 g/dl (32-36) RDW Standard Deviation 38.1 fL (36.4-46.3) RDW Coefficient of Variation 12.5 % (11.5-14.5) Mean Platelet Volume 10.1 fL (7.4-10.4) Erythrocyte Sedimentation Rate 2 mm/hr (0-21) Anion Gap 6.0 mmol/L (3-11) Est Creatinine Clear Calc Drug Dose 80.4 ml/min Estimated GFR () 96.7 Estimated GFR (Non- 83.4 BUN/Creatinine Ratio 13.8 (10-20) Estimated Average Glucose 220 mg/dl Hemoglobin A1c 9.3 % (4.5-5.6) Calcium Level 8.6 mg/dl (8.5-10.1) Magnesium Level 1.8 mg/dl (1.8-2.4) Creatine Kinase MB < 0.5 ng/ml (0.5-3.6) Troponin I < 0.015 ng/ml (0-0.045) C-Reactive Protein < 0.29 mg/dl (0-0.29) Thyroid Stimulating Hormone (TSH) 3.370 uIu/ml (0.300-4.500) Bedside Glucose 173 mg/dl (70-90) Imaging Brain MRI WITH AND WITHOUT CONTRAST HISTORY: left body numbness TECHNIQUE: Multiplanar multisequence MRI of the brain was performed both before and after the intravenous administration of contrast. COMPARISON STUDY: Head CT 01/03/2017. FINDINGS: There are no areas of restricted diffusion to suggest acute infarction. The midline structures are intact. The paranasal sinuses are clear. The mastoid air cells are clear. The ventricles and sulci are within normal limits for age. There is no mass, hematoma, midline shift. The major vascular flow-voids at the skull base are well maintained. Postcontrast sequences show no areas of abnormal enhancement. IMPRESSION: No acute intracranial abnormality. Electronically signed by: Mehdi Culp M.D. 01/03/2017 5:22 PM Impression 1. New onset left sided numbness and dysesthesia including face arm and leg with increased pain in the arm and leg on the left. This is markedly improved today and she has just a little residual numbness in the first and second divisions of the left trigeminal nerve. Otherwise, she seems back to baseline with her chronic fatigue and chronic pain. There was no evidence of a stroke on MRI. A TIA or reversible ischemic neurologic deficit cannot entirely be excluded. She does have significant risk factors for cerebrovascular disease including diabetes and hypertension, however, her MRI shows no significant old or chronic ischemic change. 2. Chronic, significant arthralgia, myalgia, and fatigue. This has defied specific diagnosis but she has been labeled with fibromyalgia in the past and has also been labeled with chronic Lyme disease (including Lyme carditis) treated with multiple pulses of oral antibiotics (multiple and unknown specific types) She falls into the category of chronic inflammatory/immunologic/rheumatologic disease. There is no evidence by laboratory testing of an active infection. I suppose I cannot include an active WOOD PILER infection. Many oral antibiotics, typically given for Lyme disease treatment as well as related infection such as babesiosis and Bartonella, do not cross the blood brain barrier. 3. History of mixed headaches. These are improved and stable. 4. History of depression This is also improved and stable. 5. History of left C8 radiculopathy, secondary to cervical spine degenerative disease. Most recent MRI of the cervical spine, and June 2016, showed C2-C7 is bulges and other degenerative changes. There were no surgical lesions present. She feels her neck and arms are much worse than in the fall. Plan I discussed diagnosis and treatment options at length with this patient. We have elected to reevaluate her multiple significant symptoms/problems 1. MRI of the cervical spine with and without contrast 2. LP under fluoroscopy. Evaluate for chronic WOOD PILER inflammation or infection 3. Plain x-rays of the lumbar spine, hips, and shoulders (her most symptomatic joints) 4. Laboratory studies to include JAYASHREE profile, LAINA level 5. Carotid ultrasound and echocardiogram 6. Consider 81 mg aspirin tablet daily. 7. Consider increase gabapentin to 800 mg by mouth 3 times a day. 8. Use tramadol 50 mg 2 or 3 times a day as needed I spoke with Dr. Hanson regarding his case including differential diagnosis and treatment options. Overall, I spent a total of 90 minutes in direct patient care with this patient.
[2017-01-04] MEDS ORDERED: PERFLUTREN LIPID MICROSPHERE (DEFINITY) IV ONE (10:49)
[2017-01-04] MEDS: ASCORBIC ACID 500 MG TAB PO SCH (12:08)
--- NOTE | 2017-01-04 15:35 | ECHOCARDIOGRAM REPORT ---
*NOTICE TO RECEIVING [employer] This information is strictly Confidential and protected under [place] law. [place] law prohibits you from making any further disclosure of this information unless further disclosure is expressly permitted by the written consent of the person to whom it pertains or is authorized by law. A general authorization for the release of medical or other information is not sufficient for this purpose. Hospital accepts no responsibility if the information is made available to any other person, INCLUDING THE PATIENT. Interpretation Summary * Name: SVEN PATEL Study Date: 01/04/2017 10:02 AM BP: 102/70 mmHg * Patient Location: [facility]\S\N276\S\1 HR: 103 * : 1965 (M/d/yyyy) Gender: Female Height: 64 in * Age: 51 yrs Ethnicity: CA Weight: 160 lb * Ordering Physician: Eri Oh * Performed By: Madelyn Ag * * Reason For Study: CEREBRAL ISCHEMIA/ EMBOLUS * BSA: 1.8 m2 * -- Conclusions -- * There is mild concentric left ventricular hypertrophy. * The left ventricle is hyperdynamic. * Small pericardial effusion that is unchanged from prior exam. * Compared to an exam from 07/2015, there is no significant change Procedure Details * A complete two-dimensional transthoracic echocardiogram was performed (2D, M-mode, Doppler and color flow Doppler). * A saline contrast injection was performed to assess for cardiac shunting. * The injection was performed through an intravenous line in the right arm. * The attending nurse who injected the saline contrast was RONDA CELIS RN. * A total of 20 cc of agitated saline was given. * A contrast injection of Definity was performed to improve assessment of LV function. * Contrast was injected into an intravenous site in the right arm. * One vial of Definity ultrasound contrast was diluted in normal saline to a total volume of 10 ml. A total of '2' ml of solution was administered during imaging. * Lot # [id number] of Definity utilized for procedure. * Expiration date 12/10. * The attending nurse who injected the contrast agent was RONDA CELIS RN. Left Ventricle * The left ventricle is normal in size. * There is mild concentric left ventricular hypertrophy. * Ejection Fraction = >70 %. * The left ventricle is hyperdynamic. Right Ventricle * The right ventricle is normal in size and function. Atria * The left atrial size is normal. * Right atrial size is normal. Mitral Valve * The mitral valve anatomy is normal. * Significant mitral regurgitation is absent. Tricuspid Valve * The tricuspid valve anatomy is normal. * Significant tricuspid regurgitation is absent. Aortic Valve * The aortic valve is normal in structure and function. * No hemodynamically significant valvular aortic stenosis. * There is no significant aortic regurgitation. Pericardium/Pleural * Small pericardial effusion that is unchanged from prior exam. Great Vessels * Normal inferior vena cava diameter and respiratory variation suggests normal central venous pressure. MMode 2D Measurements and Calculations IVSd 1.3 cm IVSs 1.4 cm LVIDd 3.4 cm LVIDs 2.1 cm LVPWd 1.3 cm LVPWs 2.1 cm IVS/LVPW 1.0 FS 37.6 % EDV(Teich) 47.2 ml ESV(Teich) 14.7 ml EF(Teich) 68.9 % EDV(cubed) 39.1 ml ESV(cubed) 9.5 ml EF(cubed) 75.7 % % IVS thick 9.5 % % LVPW thick 60.4 % LV mass(C)d 144.8 grams LV mass(C)dI 81.4 grams/m\S\2 LV mass(C)s 137.9 grams LV mass(C)sI 77.5 grams/m\S\2 SV(Teich) 32.5 ml SI(Teich) 18.3 ml/m\S\2 SV(cubed) 29.6 ml SI(cubed) 16.6 ml/m\S\2 ACS 1.0 cm LA dimension 3.4 cm asc Aorta Diam 2.7 cm LVOT diam 1.7 cm LVOT area 2.2 cm\S\2 LVAd ap4 25.3 cm\S\2 LVLd ap4 7.5 cm EDV(MOD-sp4) 67.8 ml EDV(sp4-el) 72.2 ml LVAs ap4 13.0 cm\S\2 LVLs ap4 7.0 cm ESV(MOD-sp4) 20.8 ml ESV(sp4-el) 20.2 ml EF(MOD-sp4) 69.3 % EF(sp4-el) 72.0 % LVAd ap2 23.7 cm\S\2 LVLd ap2 7.6 cm EDV(MOD-sp2) 59.7 ml EDV(sp2-el) 62.5 ml LVAs ap2 10.7 cm\S\2 LVLs ap2 6.0 cm ESV(MOD-sp2) 15.9 ml ESV(sp2-el) 16.3 ml EF(MOD-sp2) 73.3 % EF(sp2-el) 74.0 % LVLd %diff 1.1 % EDV(MOD-bp) 64.2 ml LVLs %diff -18.37 % ESV(MOD-bp) 19.7 ml EF(MOD-bp) 69.4 % SV(MOD-sp4) 46.9 ml SI(MOD-sp4) 26.4 ml/m\S\2 SV(MOD-sp2) 43.7 ml SI(MOD-sp2) 24.6 ml/m\S\2 SV(MOD-bp) 44.6 ml SI(MOD-bp) 25.0 ml/m\S\2 SV(sp4-el) 51.9 ml SI(sp4-el) 29.2 ml/m\S\2 SV(sp2-el) 46.2 ml SI(sp2-el) 26.0 ml/m\S\2 Doppler Measurements and Calculations MV E max edison 94.9 cm/sec MV dec time 0.18 sec Ao V2 max 147.8 cm/sec Ao max PG 8.7 mmHg Ao max PG (full) 5.5 mmHg MARCOS(V,A) 1.3 cm\S\2 MARCOS(V,D) 1.3 cm\S\2 LV V1 max PG 3.2 mmHg LV V1 max 89.3 cm/sec PA V2 max 70.6 cm/sec PA max PG 2.0 mmHg
[2017-01-04] MEDS: SODIUM CHLORIDE 0.9% 1000ML 1,000 ML IV SCH (17:43)
[2017-01-04] MEDS: TRAMADOL HCL 50 MG TAB PO PRN (17:48)
--- NOTE | 2017-01-04 18:40 | Medical Consult ---
Consultation Date of Consultation: January 04, 2017. Attending Physician: Keagan Hanson MD Reason for Consultation: History of Lyme disease History of Present Illness 51-year-old female who carries a diagnosis of chronic Lyme disease associated with carditis, who is being followed by a nontraditional Lyme specialist somewhat dizzy, who now presents with apparently acute onset of left-sided weakness with left-sided facial weakness and chronic fatigue for several months. she has been having severe pain in her legs, and left-sided facial weakness. Current Lyme serology is negative. No report of fever or chills. Not clear what antibiotics she has received in the past. Current Lyme serology negative. Past Medical/Surgical History Medical Problems: (1) Chest pain Status: Acute (2) Exertional dyspnea Status: Acute (3) Weakness Status: Acute Medical Problems: (1) Depression (2) Diabetes mellitus type 2 in nonobese (3) Fibromyalgia (4) HTN (hypertension) (5) Hypotension, iatrogenic (6) Lyme disease (7) Stroke-like symptoms (8) Tachycardia (9) Total body pain Surgical Problems: (1) Hx of cardiac cath (2) S/P cholecystectomy (3) S/P partial colectomy (4) S/P tubal ligation Family History Cancer FATHER Diabetes mellitus FATHER MOTHER SISTER FH: heart disease FATHER FHx: gallbladder disease FHx: lung disease MOTHER Hypertension FATHER MOTHER Kidney disease Kidney stones Social History Smoking Status: Unknown if Ever Smoked Smokeless Tobacco Use: No Alcohol Use: occasionally Drug Use: none Marital Status: Housing Status: lives with family Occupation Status: unemployed, disabled Allergies Coded Allergies: Bee Venom (Verified Allergy, Severe, LOCALIZED SWELLING, 01/03/17) Moxifloxacin (Verified Allergy, Mild, RASH, 01/03/17) Current Inpatient Medications Current Inpatient Medications Medications (Trade) Dose Ordered Sig/Radha Route Start Time Stop Time Status Last Admin Dose Admin Acetaminophen (Tylenol Tab) 650 mg Q4H PRN PO 01/03/17 15:30 02/02/17 15:29 Al Hydrox/Mg Hydrox/Simethicone (Maalox Max Susp) 15 ml Q4H PRN PO 01/03/17 15:30 02/02/17 15:29 Magnesium Hydroxide (Milk Of Magnesia Susp) 30 ml Q12H PRN PO 01/03/17 15:30 02/02/17 15:29 Ondansetron HCl (Zofran Inj) 4 mg Q6H PRN IV 01/03/17 15:30 02/02/17 15:29 Nitroglycerin (Nitrostat Tab) 0.4 mg UD PRN SL 01/03/17 15:30 02/02/17 15:29 Polyethylene (Miralax Powder Packet) 17 gm DAILY PRN PO 01/03/17 15:30 02/02/17 15:29 Ascorbic Acid (Vitamin C Tab) 1,000 mg QDL PO 01/04/17 11:00 02/03/17 10:59 01/04/17 12:08 1,000 MG Clonazepam (Klonopin Tab) 0.5 mg HS PO 01/03/17 21:00 02/02/17 20:59 01/03/17 20:24 0.5 MG Metoprolol Succinate (Toprol Xl Tab) 50 mg DAILY PO 01/04/17 09:00 02/03/17 08:59 01/04/17 08:51 50 MG Multivitamins (Multivitamin Tab) 1 tab DAILY PO 01/04/17 09:00 02/03/17 08:59 01/04/17 08:51 1 TAB Trazodone HCl (Desyrel Tab) 50 mg HS PO 01/03/17 21:00 02/02/17 20:59 01/03/17 20:22 50 MG Insulin Aspart (novoLOG ASPART) SLIDING SCALE G... ACHS SC 01/03/17 16:00 01/04/17 17:45 12 UNITS Enoxaparin Sodium (Lovenox Inj) 40 mg QPM SQ 01/03/17 21:00 02/02/17 20:59 Pantoprazole Sodium (Protonix Tab) 40 mg QAM PO 01/04/17 09:00 02/03/17 08:59 Glucose (Glucose 40% Gel) 15-30 GRAMS 15 GRAMS... UD PRN PO 01/03/17 16:45 02/02/17 16:44 Glucose (Glucose Chew Tab) 4-8 Tablets 4 Tabl... UD PRN PO 01/03/17 16:45 02/02/17 16:44 Dextrose (Dextrose 50% 50ML Syringe) 25-50ML OF 50% DW IV FOR... UD PRN IV 01/03/17 16:45 02/02/17 16:44 Glucagon (Glucagon Inj) 1 mg UD PRN SQ 01/03/17 16:45 02/02/17 16:44 Miscellaneous (Iv Fluids Completed) 1 ea PRN PRN N/A 01/03/17 17:15 01/03/18 17:14 Gadobutrol (Gadavist) 7 mmol UD PRN IV 01/03/17 17:15 01/07/17 17:14 Naproxen (Naprosyn Tab) 500 mg Q12H PRN PO 01/03/17 18:15 02/02/17 18:14 01/03/17 18:43 500 MG Tramadol HCl (Ultram Tab) 50 mg Q4H PRN PO 01/03/17 22:00 02/02/17 21:59 01/04/17 17:48 50 MG Gabapentin 800 mg 800 mg TID PO 01/04/17 21:00 02/03/17 20:59 Sodium Chloride (Nss 1000ml) 1,000 ml @ 150 mls/hr Q6H40M IV 01/04/17 16:30 02/03/17 16:29 01/04/17 17:43 150 MLS/HR Review of Systems Constitutional: + fatigue, + weakness, No fever Eyes: No problem reported ENT: No problem reported Respiratory: No problem reported Abdomen: + nausea Musculoskeletal: + joint pain, + muscle pain Genitourinary - Female: No problem reported Neurologic: + numbness/tingling, + weakness Psychiatric: No problem reported Endocrine: No problem reported Hematologic / Lymphatic: No problem reported Integumentary: No problem reported Allergic / Immunologic: No problem reported Physical Exam Date Time Temp Pulse Resp B/P Pulse Ox O2 Delivery O2 Flow Rate FiO2 01/04/17 16:00 95 Room Air 01/04/17 15:02 37.1 101 18 128/82 96 01/04/17 12:00 95 Room Air 01/04/17 11:30 36.8 102 18 135/86 97 Room Air 01/04/17 08:00 95 Room Air 01/04/17 07:34 36.9 100 18 101/68 95 Room Air 01/04/17 05:06 36.6 103 20 102/70 96 Room Air 01/04/17 04:01 Room Air 01/04/17 00:06 Room Air 01/03/17 23:30 36.5 94 20 109/75 97 Room Air 01/03/17 20:38 Room Air General Appearance: WD/WN, no apparent distress Head: normocephalic, atraumatic Eyes: normal inspection, EOMI, sclerae normal ENT: normal ENT inspection, pharynx normal Neck: supple, no adenopathy, trachea midline Respiratory/Chest: chest non-tender, lungs clear, normal breath sounds, no respiratory distress Cardiovascular: regular rate, rhythm, no gallop Abdomen/GI: normal bowel sounds, non tender, soft, no organomegaly Back: normal inspection, no CVA tenderness Extremities/Musculoskelatal: no calf tenderness, normal capillary refill, non- tender Neurologic/Psych: no motor/sensory deficits, alert, oriented x 3 Skin: normal color, warm/dry, no rash Lymphatic: no adenopathy Laboratory Results Last 24 Hours Test 01/03/17 20:30 01/03/17 21:00 01/03/17 21:03 01/04/17 05:00 Bedside Glucose 213 mg/dl Creatine Kinase MB Ratio Creatine Kinase MB < 0.5 ng/ml Troponin I < 0.015 ng/ml Test 01/04/17 05:18 01/04/17 07:26 01/04/17 11:23 01/04/17 16:15 White Blood Count 4.17 K/uL Red Blood Count 4.30 M/uL Hemoglobin 12.1 g/dL Hematocrit 36.3 % Mean Corpuscular Volume 84.4 fL Mean Corpuscular Hemoglobin 28.1 pg Mean Corpuscular Hemoglobin Concent 33.3 g/dl RDW Standard Deviation 38.1 fL RDW Coefficient of Variation 12.5 % Platelet Count 178 K/uL Mean Platelet Volume 10.1 fL Erythrocyte Sedimentation Rate 2 mm/hr Sodium Level 140 mmol/L Potassium Level 3.8 mmol/L Chloride Level 106 mmol/L Carbon Dioxide Level 28 mmol/L Anion Gap 6.0 mmol/L Blood Urea Nitrogen 11 mg/dl Creatinine 0.82 mg/dl Est Creatinine Clear Calc Drug Dose 80.4 ml/min Estimated GFR () 96.7 Estimated GFR (Non- 83.4 BUN/Creatinine Ratio 13.8 Random Glucose 182 mg/dl Estimated Average Glucose 220 mg/dl Hemoglobin A1c 9.3 % Calcium Level 8.6 mg/dl Magnesium Level 1.8 mg/dl Creatine Kinase MB < 0.5 ng/ml Troponin I < 0.015 ng/ml C-Reactive Protein < 0.29 mg/dl Vitamin B12 Level 557 pg/mL Folate 16.74 ng/mL Thyroid Stimulating Hormone (TSH) 3.370 uIu/ml Bedside Glucose 173 mg/dl 187 mg/dl 211 mg/dl Patient Name: SVEN PATEL Unit Number: [id number] Dictated: 01/03/171717 Transcribed: 01/03/171717 [facility] Printed Date/Time: [~ rep prt dt]/[~ rep prt tm] [~ rep ct labl] - [~ rep ct ivnm] [facility] [place] [address] Dictated: 01/03/171717 Transcribed: 01/03/171717 [facility] Printed Date/Time: [~ rep prt dt]/[~ rep prt tm] [~ rep ct labl] - [~ rep ct ivnm] Brain MRI WITH AND WITHOUT CONTRAST HISTORY: left body numbness TECHNIQUE: Multiplanar multisequence MRI of the brain was performed both before and after the intravenous administration of contrast. COMPARISON STUDY: Head CT 01/03/2017. FINDINGS: There are no areas of restricted diffusion to suggest acute infarction. The midline structures are intact. The paranasal sinuses are clear. The mastoid air cells are clear. The ventricles and sulci are within normal limits for age. There is no mass, hematoma, midline shift. The major vascular flow-voids at the skull base are well maintained. Postcontrast sequences show no areas of abnormal enhancement. IMPRESSION: No acute intracranial abnormality. Electronically signed by: Mehdi Culp M.D. 01/03/2017 5:22 PM Dictated Date/Time: 01/03/2017 5:18 PM The status of this report is Signed. Draft = Not yet reviewed or approved by Radiologist. Signed = Reviewed and approved by Radiologist. <AttendingPhy></AttendingPhy> <FamilyPhy>Dane Reddy D.O.</FamilyPhy> < PrimaryPhy>Dane Reddy D.O.</PrimaryPhy> <UnitNumber>[id number]</UnitNumber > <VisitNumber>[id number]</VisitNumber> <PatientName>SVEN PATEL</PatientName> < DateOfBirth>1965</DateOfBirth> <Location>C.EDB</Location> <ServiceDate>08/10</ServiceDate> <MNE>ESINDI</MNE> <OrderingPhy>Eri Oh PA-C</ OrderingPhy> <OrderingPhyMNE>f rep ord dr jacobo</OrderingPhyMNE> <DictatingPhyMNE> f rep dict dr jacobo</DictatingPhyMNE> <CCListMNE>f rep ct mne</CCListMNE> < AdmittingPhyMNE>f pt admit dr jacobo</AdmittingPhyMNE> <AttendingPhyMNE>f pt attend dr jacobo</AttendingPhyMNE> <ConsultingPhyMNE>f pt consult dr jacobo</ConsultingPhyMNE> <FamilyPhyMNE>f pt fam dr jacobo</FamilyPhyMNE> <OtherPhyMNE>f pt other dr jacobo</OtherPhyMNE> < PrimaryPhyMNE>f pt prim care dr jacobo</PrimaryPhyMNE> <ReferringPhyMNE>f pt referring dr jacobo</ReferringPhyMNE> Assessment & Plan 51-year-old patient with prior history of Lyme disease now with left-sided weakness including facial weakness, with current negative Lyme serology. It would be unlikely that this represents progression of Lyme disease given negative serology and previous treatment. Agree with Neurology that lumbar puncture would better delineate possibility of [employer] infection. Would hold treatment for Lyme disease pending further evaluation. Will discuss with all involved.
[2017-01-04] MEDS ORDERED: DIAZEPAM 5MG TAB PO SCH (20:00)
[2017-01-04] MEDS: ENOXAPARIN 40 MG/0.4 ML SYR SQ SCH (21:00)
[2017-01-04] MEDS ORDERED: INSULIN GLARGINE SOLOSTAR 100 UNITS/ML 3 ML PEN SC SCH (21:00)
[2017-01-04] MEDS: TRAZODONE HCL 50 MG TAB PO SCH (21:01)
[2017-01-04] MEDS: CLONAZEPAM 0.5 MG TAB PO SCH (21:02)
[2017-01-04] MEDS: GABAPENTIN 800 MG TAB PO SCH (21:02)
[2017-01-05] VITALS (10 sets, daily range): BP systolic 101–127; BP diastolic 60–84; PULSE 90–106; TEMP 36.4–36.8; O2SAT 95–97
[2017-01-05] MEDS ORDERED: GADAVIST IV PRN
[2017-01-05] MEDS: SODIUM CHLORIDE 0.9% 1000ML 1,000 ML IV SCH ×3 (00:02→12:12)
--- NOTE | 2017-01-05 00:11 | Progress Note ---
Subjective Date of Service: January 04, 2017. Subjective Pt evaluation today including: conversation w/ patient, conversation w/ family ( at bedside), physical exam, chart review, lab review, review of studies (MRI brain, etc), conversation w/ eyewear consultant (neurology), review of inpatient medication list Pain: multiple areas - upper back (interscapular area), b/l shoulders, etc PO Intake: normal Patient continues to have paresthesias of the left arm, right hand, left leg ( lateral aspect of left thigh, then wrapping posteriorly down the calf to the ankle). Denies paresthesias of right leg. Movement of right shoulder causes paresthesias going down the right arm. She feels that her "joints are loose" rather than stiff. Denies joint synovitis/swelling. Denies recent travel, sick contacts, changes in medications, any new medications , etc. Has never had LP. Asks specific questions about her "JAYASHREE", etc Problem List Medical Problems: (1) Chest pain Status: Acute (2) Exertional dyspnea Status: Acute (3) Weakness Status: Acute Review of Systems Constitutional: No fever Respiratory: No shortness of breath Cardiac: No chest pain Abdomen: No pain Objective Vital Signs Date Time Temp Pulse Resp B/P Pulse Ox O2 Delivery O2 Flow Rate FiO2 01/04/17 19:56 Room Air 01/04/17 19:06 36.5 106 20 125/85 95 Room Air 01/04/17 16:00 95 Room Air 01/04/17 15:02 37.1 101 18 128/82 96 01/04/17 12:00 95 Room Air 01/04/17 11:30 36.8 102 18 135/86 97 Room Air 01/04/17 08:00 95 Room Air 01/04/17 07:34 36.9 100 18 101/68 95 Room Air 01/04/17 05:06 36.6 103 20 102/70 96 Room Air 01/04/17 04:01 Room Air 01/04/17 00:06 Room Air Physical Exam General Appearance: no apparent distress Eyes: PERRL, EOMI ENT: pharynx normal Neck: no JVD Respiratory/Chest: lungs clear, no respiratory distress, no accessory muscle use Cardiovascular: regular rate, rhythm, no gallop, no murmur Abdomen: normal bowel sounds, non tender, soft, no organomegaly Extremities: no pedal edema Neurologic/Psychiatric: alert, oriented x 3, + sensory deficit (decreased sensation to light touch over LLE) Skin: no rash Comments: passive ROM of both shoulders causes an extreme amount of pain; she reports the pain travels down the arms from the shoulder toward the elbow and into the forearm Laboratory Results Last 24 Hours Test 01/04/17 05:00 01/04/17 05:18 01/04/17 07:26 01/04/17 11:23 Creatine Kinase MB Ratio White Blood Count 4.17 K/uL Red Blood Count 4.30 M/uL Hemoglobin 12.1 g/dL Hematocrit 36.3 % Mean Corpuscular Volume 84.4 fL Mean Corpuscular Hemoglobin 28.1 pg Mean Corpuscular Hemoglobin Concent 33.3 g/dl RDW Standard Deviation 38.1 fL RDW Coefficient of Variation 12.5 % Platelet Count 178 K/uL Mean Platelet Volume 10.1 fL Erythrocyte Sedimentation Rate 2 mm/hr Sodium Level 140 mmol/L Potassium Level 3.8 mmol/L Chloride Level 106 mmol/L Carbon Dioxide Level 28 mmol/L Anion Gap 6.0 mmol/L Blood Urea Nitrogen 11 mg/dl Creatinine 0.82 mg/dl Est Creatinine Clear Calc Drug Dose 80.4 ml/min Estimated GFR () 96.7 Estimated GFR (Non- 83.4 BUN/Creatinine Ratio 13.8 Random Glucose 182 mg/dl Estimated Average Glucose 220 mg/dl Hemoglobin A1c 9.3 % Calcium Level 8.6 mg/dl Magnesium Level 1.8 mg/dl Creatine Kinase MB < 0.5 ng/ml Troponin I < 0.015 ng/ml C-Reactive Protein < 0.29 mg/dl Vitamin B12 Level 557 pg/mL Folate 16.74 ng/mL Thyroid Stimulating Hormone (TSH) 3.370 uIu/ml Bedside Glucose 173 mg/dl 187 mg/dl Test 01/04/17 16:15 01/04/17 20:32 Bedside Glucose 211 mg/dl 123 mg/dl Assessment and Plan 51yo female - 1. paresthesias, multiple locations - MRI brain negative. The current symptoms does not match any particular pattern. Will obtain c-spine MRI and L-spine MRI (with contrast). B12, B1 levels in the recent past were normal. TSH is normal. Has been treated for chronic lyme's but doubt this is the cause. JAYASHERE in the past has been modestly positive. In light of pericardial effusion and perplexing symptomatology reasonable to repeat the JAYASHREE. Appreciate neurology consultation. If MRIs of spine are negative then proceed with diagnostic LP. 2. T2DM - uncontrolled; add lantus 10 units HS. 3. chronic pain syndrome, paresthesias, fibromyalgia - increase gabapentin to 800mg TID. Check AM cortisol to be complete. Recent CPK was normal. Recent ESR was normal. 4. FEN - add fluids due to mild tachycardia and hyperdynamic LV function on echo. Change diet to DM diet. 5. DVT proph - lovenox daily. 6. arthralgias, joint pains - no evidence of synovitis on exam. See discussions above. Treat the pain for now. updated. Continued [facility] stay due to: inadequate oral pain control, multiple IV medications needed Discharge planning: home
--- NOTE | 2017-01-05 06:47 | DIAGNOSTIC IMAGING REPORT ---
MRI OF THE CERVICAL SPINE WITH AND WITHOUT CONTRAST CLINICAL HISTORY: Bilateral upper extremity paresthesias. Stroke symptoms. COMPARISON: MRI of the cervical spine July 01, 2016. TECHNIQUE: Utilizing a 1.5 Elissa magnet and dedicated coil, multiplanar, multiecho imaging of the cervical spine was performed before and after intravenous administration of 7 of Gadavist. FINDINGS: Alignment of the cervical spine is anatomic. Vertebral body heights are maintained. A 1.1 cm T1 and T2 hyperintense lesion within the T3 vertebral body is unchanged since MRI of July 01, 2016. This does not enhance. This is likely benign. Cervical cord signal and caliber are normal. There is no intracanalicular mass or fluid collection. Paravertebral soft tissues are unremarkable. C2-C3: The central canal and neural foramen are patent. C3-C4: The central canal and neural foramen are patent. There is minimal disc bulge. C4-C5: The central canal and neural foramen are patent. C5-C6: The central canal and neural foramen are patent. There is minimal uncovertebral hypertrophy. C6-C7: There is minimal disc bulge. The central canal and neural foramen are patent. C7-T1: The central canal and neural foramen are patent. IMPRESSION: 1. Minimal multilevel degenerative disc disease. No central canal and neural foraminal stenosis. 2. Normal cervical cord signal and caliber. Electronically signed by: Jesse Chávez M.D. 01/05/2017 6:46 AM Dictated Date/Time: 01/05/2017 6:40 AM
--- NOTE | 2017-01-05 06:51 | DIAGNOSTIC IMAGING REPORT ---
MRI OF THE LUMBAR SPINE WITH AND WITHOUT CONTRAST CLINICAL HISTORY: Paresthesias. Stroke like symptoms. COMPARISON STUDY: Lumbar spine radiographs November 27, 2015. TECHNIQUE: Utilizing a 1.5 Elissa magnet and dedicated coil, multiplanar, multiecho imaging of the lumbar spine was performed before and after uneventful IV administration of 7 mL of Gadavist. FINDINGS: For purposes of numbering on this exam, the L5-S1 disc space is assigned to axial image 23 of 25. Alignment of the lumbar spine is anatomic. Vertebral body heights are maintained. There is no intracanalicular mass or fluid collection. Conus terminates at the lower L1 level. Paravertebral soft tissues are unremarkable. There is no abnormal enhancement within the canal. L1-2: The central canal and neural foramen are patent. L2-3: The central canal and neural foramen are patent. L3-4: There is minimal disc bulge and facet arthrosis. The central canal and neural foramen are patent. L4-5: There is mild facet arthrosis. There is a tiny left percent disc protrusion. Central canal and neural foramen are patent. There is minimal narrowing of the left lateral recess. L5-S1: Central canal and neural foramen are patent. IMPRESSION: 1. Minimal degenerative disc disease and facet arthrosis of the lumbar spine. Tiny left paracentral disc protrusion at L4-L5 that results in mild narrowing of the left lateral recess. 2. No fracture or suspicious marrow replacement. Electronically signed by: Jesse Chávez M.D. 01/05/2017 6:49 AM Dictated Date/Time: 01/05/2017 6:46 AM
--- NOTE | 2017-01-05 08:55 | Neurology Progress Notes ---
Neurology Progress Note Date of Service January 05, 2017. Subjective Patient is stable with no new issues or problems. She does not have significant pain currently. Echocardiogram showed no change from the previous study of 2014. She does have a small pericardial effusion, that was present back then as well. MRI of the cervical spine showed minimal degenerative changes only. There was no significant stenoses or cord issues. I reviewed these films and discussed with the patient MRI of the lumbar spine showed minimal degenerative changes as well. There was a very tiny L4-5 disc protrusion. I have reviewed these films and discussed with the patient. Objective Date Time Temp Pulse Resp B/P Pulse Ox O2 Delivery O2 Flow Rate FiO2 01/05/17 07:34 36.8 106 16 109/77 97 01/05/17 04:34 36.4 93 18 101/68 96 Room Air 01/05/17 04:01 Room Air 01/05/17 00:13 Room Air 01/05/17 00:06 36.7 101 20 106/60 96 Room Air 01/04/17 19:56 Room Air 01/04/17 19:06 36.5 106 20 125/85 95 Room Air 01/04/17 16:00 95 Room Air 01/04/17 15:02 37.1 101 18 128/82 96 01/04/17 12:00 95 Room Air 01/04/17 11:30 36.8 102 18 135/86 97 Room Air Last 24 Hours Test 01/04/17 11:23 01/04/17 16:15 01/04/17 20:32 01/05/17 07:53 Bedside Glucose 187 mg/dl 211 mg/dl 123 mg/dl 196 mg/dl Test 01/05/17 08:30 Imaging: MRI OF THE CERVICAL SPINE WITH AND WITHOUT CONTRAST CLINICAL HISTORY: Bilateral upper extremity paresthesias. Stroke symptoms. COMPARISON: MRI of the cervical spine July 01, 2016. TECHNIQUE: Utilizing a 1.5 Elissa magnet and dedicated coil, multiplanar, multiecho imaging of the cervical spine was performed before and after intravenous administration of 7 of Gadavist. FINDINGS: Alignment of the cervical spine is anatomic. Vertebral body heights are maintained. A 1.1 cm T1 and T2 hyperintense lesion within the T3 vertebral body is unchanged since MRI of July 01, 2016. This does not enhance. This is likely benign. Cervical cord signal and caliber are normal. There is no intracanalicular mass or fluid collection. Paravertebral soft tissues are unremarkable. C2-C3: The central canal and neural foramen are patent. C3-C4: The central canal and neural foramen are patent. There is minimal disc bulge. C4-C5: The central canal and neural foramen are patent. C5-C6: The central canal and neural foramen are patent. There is minimal uncovertebral hypertrophy. C6-C7: There is minimal disc bulge. The central canal and neural foramen are patent. C7-T1: The central canal and neural foramen are patent. IMPRESSION: 1. Minimal multilevel degenerative disc disease. No central canal and neural foraminal stenosis. 2. Normal cervical cord signal and caliber. Electronically signed by: Jesse Chávez M.D. 01/05/2017 6:46 AM MRI OF THE LUMBAR SPINE WITH AND WITHOUT CONTRAST CLINICAL HISTORY: Paresthesias. Stroke like symptoms. COMPARISON STUDY: Lumbar spine radiographs November 27, 2015. TECHNIQUE: Utilizing a 1.5 Elissa magnet and dedicated coil, multiplanar, multiecho imaging of the lumbar spine was performed before and after uneventful IV administration of 7 mL of Gadavist. FINDINGS: For purposes of numbering on this exam, the L5-S1 disc space is assigned to axial image 23 of 25. Alignment of the lumbar spine is anatomic. Vertebral body heights are maintained. There is no intracanalicular mass or fluid collection. Conus terminates at the lower L1 level. Paravertebral soft tissues are unremarkable. There is no abnormal enhancement within the canal. L1-2: The central canal and neural foramen are patent. L2-3: The central canal and neural foramen are patent. L3-4: There is minimal disc bulge and facet arthrosis. The central canal and neural foramen are patent. L4-5: There is mild facet arthrosis. There is a tiny left percent disc protrusion. Central canal and neural foramen are patent. There is minimal narrowing of the left lateral recess. L5-S1: Central canal and neural foramen are patent. IMPRESSION: 1. Minimal degenerative disc disease and facet arthrosis of the lumbar spine. Tiny left paracentral disc protrusion at L4-L5 that results in mild narrowing of the left lateral recess. 2. No fracture or suspicious marrow replacement. Electronically signed by: Jesse Chávez M.D. 01/05/2017 6:49 AM Exam: Patient is awake and alert. Speech is normal without aphasia or dysarthria. Mood and affect are normal appropriate. Thought processes are intact. There are no abnormal involuntary movements. There is no facial droop. There is no nystagmus and extraocular eye muscles are intact. Strength is symmetrical. Current Inpatient Medications Medications (Trade) Dose Ordered Sig/Radha Route Start Time Stop Time Status Last Admin Dose Admin Acetaminophen (Tylenol Tab) 650 mg Q4H PRN PO 01/03/17 15:30 02/02/17 15:29 Al Hydrox/Mg Hydrox/Simethicone (Maalox Max Susp) 15 ml Q4H PRN PO 01/03/17 15:30 02/02/17 15:29 Magnesium Hydroxide (Milk Of Magnesia Susp) 30 ml Q12H PRN PO 01/03/17 15:30 02/02/17 15:29 Ondansetron HCl (Zofran Inj) 4 mg Q6H PRN IV 01/03/17 15:30 02/02/17 15:29 Nitroglycerin (Nitrostat Tab) 0.4 mg UD PRN SL 01/03/17 15:30 02/02/17 15:29 Polyethylene (Miralax Powder Packet) 17 gm DAILY PRN PO 01/03/17 15:30 02/02/17 15:29 Ascorbic Acid (Vitamin C Tab) 1,000 mg QDL PO 01/04/17 11:00 02/03/17 10:59 01/04/17 12:08 1,000 MG Clonazepam (Klonopin Tab) 0.5 mg HS PO 01/03/17 21:00 02/02/17 20:59 01/04/17 21:02 0.5 MG Metoprolol Succinate (Toprol Xl Tab) 50 mg DAILY PO 01/04/17 09:00 02/03/17 08:59 01/04/17 08:51 50 MG Multivitamins (Multivitamin Tab) 1 tab DAILY PO 01/04/17 09:00 02/03/17 08:59 01/04/17 08:51 1 TAB Trazodone HCl (Desyrel Tab) 50 mg HS PO 01/03/17 21:00 02/02/17 20:59 01/04/17 21:01 50 MG Insulin Aspart (novoLOG ASPART) SLIDING SCALE G... ACHS SC 01/03/17 16:00 02/02/17 15:59 01/04/17 17:45 12 UNITS Enoxaparin Sodium (Lovenox Inj) 40 mg QPM SQ 01/03/17 21:00 02/02/17 20:59 Pantoprazole Sodium (Protonix Tab) 40 mg QAM PO 01/04/17 09:00 02/03/17 08:59 Glucose (Glucose 40% Gel) 15-30 GRAMS 15 GRAMS... UD PRN PO 01/03/17 16:45 02/02/17 16:44 Glucose (Glucose Chew Tab) 4-8 Tablets 4 Tabl... UD PRN PO 01/03/17 16:45 02/02/17 16:44 Dextrose (Dextrose 50% 50ML Syringe) 25-50ML OF 50% DW IV FOR... UD PRN IV 01/03/17 16:45 02/02/17 16:44 Glucagon (Glucagon Inj) 1 mg UD PRN SQ 01/03/17 16:45 02/02/17 16:44 Miscellaneous (Iv Fluids Completed) 1 ea PRN PRN N/A 01/03/17 17:15 01/03/18 17:14 Gadobutrol (Gadavist) 7 mmol UD PRN IV 01/03/17 17:15 01/07/17 17:14 Naproxen (Naprosyn Tab) 500 mg Q12H PRN PO 01/03/17 18:15 02/02/17 18:14 01/03/17 18:43 500 MG Tramadol HCl (Ultram Tab) 50 mg Q4H PRN PO 01/03/17 22:00 02/02/17 21:59 01/04/17 17:48 50 MG Gabapentin 800 mg 800 mg TID PO 01/04/17 21:00 02/03/17 20:59 01/04/17 21:02 800 MG Sodium Chloride (Nss 1000ml) 1,000 ml @ 150 mls/hr Q6H40M IV 01/04/17 16:30 02/03/17 16:29 01/05/17 05:54 150 MLS/HR Insulin Glargine (Lantus Solostar Pen) 10 unit HS SC 01/04/17 21:00 02/03/17 20:59 01/04/17 21:06 10 UNIT Gadobutrol (Gadavist) 7 mmol UD PRN IV 01/05/17 00:00 01/09/17 00:00 Impression 1. New onset left sided numbness and dysesthesia including face arm and leg with increased pain in the arm and leg on the left. This is markedly improved and she has just a little residual numbness in the first and second divisions of the left trigeminal nerve. Otherwise, she seems back to baseline with her chronic fatigue and chronic pain. There was no evidence of a stroke on MRI. A TIA or reversible ischemic neurologic deficit cannot entirely be excluded. She does have significant risk factors for cerebrovascular disease including diabetes and hypertension, however, her MRI shows no significant old or chronic ischemic change. 2. Chronic, significant arthralgia, myalgia, and fatigue. This has defied specific diagnosis but she has been labeled with fibromyalgia in the past and has also been labeled with chronic Lyme disease (including Lyme carditis) treated with multiple pulses of oral antibiotics (multiple and unknown specific types) She falls into the category of chronic inflammatory/immunologic/rheumatologic disease. There is no evidence by laboratory testing of an active infection. I suppose I cannot include an active MICROARRAY SPECIALIST infection. Many oral antibiotics, typically given for Lyme disease treatment as well as related infection such as babesiosis and Bartonella, do not cross the blood brain barrier. 3. History of mixed headaches. These are improved and stable. 4. History of depression This is also improved and stable. 5. History of left C8 radiculopathy, secondary to cervical spine degenerative disease. Most recent MRI of the cervical spine, and June 2016, showed C2-C7 is bulges and other degenerative changes. There were no surgical lesions present. She feels her neck and arms are much worse than in the fall. MRI of the cervical spine was largely unremarkable. MRI of the lumbar spine had a very tiny L4-5 disc protrusion but was otherwise unremarkable. There was no evidence for surgical lesions. Plan 1. LP under fluoroscopy. Evaluate for chronic MICROARRAY SPECIALIST inflammation or infection, including Lyme disease and MS. please contact me if there are any questions about what to order with the LP 2. Plain x-rays of the lumbar spine, hips, and shoulders (her most symptomatic joints) 3. Laboratory studies to include JAYASHREE profile, LAINA level 4. Carotid ultrasound 5. Consider 81 mg aspirin tablet daily. 6. Continue gabapentin 800 mg by mouth 3 times a day. 7. Use tramadol 50 mg 2 or 3 times a day as needed Dr. Agrawal will be covering the patient starting tomorrow.
[2017-01-05] MEDS: PANTOprazole SOD 40 MG TAB PO SCH (09:00)
[2017-01-05] MEDS: METOPROLOL SUCC 50MG EXT REL TAB PO SCH (09:00)
[2017-01-05] MEDS: MULTIVITAMIN TAB PO SCH (09:00)
[2017-01-05] MEDS: GABAPENTIN 800 MG TAB PO SCH ×2 (09:00→13:14)
[2017-01-05] MEDS: INSULIN ASPART 100 UNITS/ML 3 ML PEN SC SCH ×3 (09:02→18:34)
[2017-01-05] MEDS: TRAMADOL HCL 50 MG TAB PO PRN ×2 (10:51→17:22)
[2017-01-05] MEDS: ASCORBIC ACID 500 MG TAB PO SCH (12:09)
--- NOTE | 2017-01-05 13:33 | DIAGNOSTIC IMAGING REPORT ---
FLUOROSCOPICALLY GUIDED LUMBAR PUNCTURE CLINICAL HISTORY: ?DENTAL FINANCIAL COORDINATOR lyme's, ?MS; paresthesias, weakness. PROCEDURE: The procedure, risks and benefits were discussed with the patient including the risk of spinal headache, bleeding and infection. The patient agreed to the procedure and informed written consent was obtained. The procedure was performed by Dr. Chávez following a timeout. The right L4-L5 interlaminar space was targeted. Skin overlying the space was prepped and draped in sterile fashion and local anesthesia was achieved with 1% lidocaine. Under intermittent fluoroscopic guidance, a 3 and 1/2 inch 22-gauge spinal needle was directed into the thecal sac. There was immediate return of clear cerebrospinal fluid. At this time, 8 cc of CSF was collected in 4 vials and sent to laboratory as ordered. The needle was removed. The patient tolerated the procedure well and no immediate complications were evident. IMPRESSION: Fluoroscopically guided lumbar puncture with collection of 8 cc of clear cerebrospinal fluid which was sent to laboratory as ordered. Electronically signed by: Jesse Chávez M.D. 01/05/2017 1:32 PM Dictated Date/Time: 01/05/2017 1:31 PM
[2017-01-05 13:39] LABS: CSF TOTAL PROTEIN 56.5 mg/dl (15.0-45.0)
[2017-01-05 14:02] LABS: CSF APPEARANCE CLEAR; CSF COLOR COLORLESS; CSF XANTHOCHROMIC NO XANTHOCHROMIA
--- NOTE | 2017-01-05 16:48 | Medical Student: [facility] ---
Med Student Progress Note Date of Service January 05, 2017. Subjective Pt evaluation today including: conversation w/ patient, conversation w/ family , physical exam, chart review, lab review, review of studies, conversation w/ consultant in ergonomics and safety Pain: mild/moderate PO Intake: full diet Voiding: no voiding problems no acute events overnight. patient reports that her recent symptoms are improving with less pain and numbness on the left side. she does feel more fatigued today despite getting adequate sleep. she is concerned about the origin of this new onset pain and numbness and would like to know what could be causing it. otherwise, reports no other symptoms. Review of Systems Constitutional: No chills, No fever, No sweats Respiratory: No cough, No shortness of breath Cardiac: No chest pain Female : No urinary frequency Psychiatric: + anxiety, + depression symptoms Endo: + fatigue Objective Vital Signs Date Time Temp Pulse Resp B/P Pulse Ox O2 Delivery O2 Flow Rate FiO2 01/05/17 15:32 36.7 90 16 127/82 95 01/05/17 13:26 36.6 92 16 123/84 96 Room Air 01/05/17 12:48 36.7 105 16 122/83 96 Room Air 01/05/17 12:00 97 Room Air 01/05/17 08:00 97 Room Air 01/05/17 07:34 36.8 106 16 109/77 97 01/05/17 04:34 36.4 93 18 101/68 96 Room Air 01/05/17 04:01 Room Air 01/05/17 00:13 Room Air 01/05/17 00:06 36.7 101 20 106/60 96 Room Air 01/04/17 19:56 Room Air 01/04/17 19:06 36.5 106 20 125/85 95 Room Air Physical Exam General Appearance: WD/WN, no apparent distress ENT: hearing grossly normal, pharynx normal Neck: supple, no adenopathy, no JVD Respiratory/Chest: chest non-tender, lungs clear, normal breath sounds Cardiovascular: regular rate, rhythm, no edema, no gallop, no murmur Abdomen: normal bowel sounds, non tender, soft Extremities: normal range of motion, non-tender Neurologic/Psychiatric: alert, oriented x 3, + abnormal associate professor of communication II-XII (decreased sensation on left face. other associate professor of communication normal.), + sensory deficit (decreased sensation on left foot and left lateral leg.) Skin: normal color, no rash Laboratory Results Last 24 Hours Test 01/04/17 20:32 01/05/17 07:53 01/05/17 08:30 01/05/17 11:52 Bedside Glucose 123 mg/dl 196 mg/dl 165 mg/dl Cortisol AM Sample 12.09 mcg/dl Test 01/05/17 12:48 01/05/17 13:31 CSF Color COLORLESS CSF Appearance CLEAR CSF WBC 0 /uL CSF RBC 3 /uL CSF Xanthrochromic NO XANTHOCHROMIA CSF Cell Count Tube # 3 CSF Chemistry Tube # 1 CSF Glucose 92 mg/dl CSF Total Protein 56.5 mg/dl Medications Current Inpatient Medications Medications (Trade) Dose Ordered Sig/Radha Route Start Time Stop Time Status Last Admin Dose Admin Acetaminophen (Tylenol Tab) 650 mg Q4H PRN PO 01/03/17 15:30 02/02/17 15:29 01/05/17 12:10 650 MG Al Hydrox/Mg Hydrox/Simethicone (Maalox Max Susp) 15 ml Q4H PRN PO 01/03/17 15:30 02/02/17 15:29 Magnesium Hydroxide (Milk Of Magnesia Susp) 30 ml Q12H PRN PO 01/03/17 15:30 02/02/17 15:29 Ondansetron HCl (Zofran Inj) 4 mg Q6H PRN IV 01/03/17 15:30 02/02/17 15:29 Nitroglycerin (Nitrostat Tab) 0.4 mg UD PRN SL 01/03/17 15:30 02/02/17 15:29 Polyethylene (Miralax Powder Packet) 17 gm DAILY PRN PO 01/03/17 15:30 02/02/17 15:29 Ascorbic Acid (Vitamin C Tab) 1,000 mg QDL PO 01/04/17 11:00 02/03/17 10:59 01/05/17 12:09 1,000 MG Clonazepam (Klonopin Tab) 0.5 mg HS PO 01/03/17 21:00 02/02/17 20:59 01/04/17 21:02 0.5 MG Metoprolol Succinate (Toprol Xl Tab) 50 mg DAILY PO 01/04/17 09:00 02/03/17 08:59 01/05/17 09:00 50 MG Multivitamins (Multivitamin Tab) 1 tab DAILY PO 01/04/17 09:00 02/03/17 08:59 01/05/17 09:00 1 TAB Trazodone HCl (Desyrel Tab) 50 mg HS PO 01/03/17 21:00 02/02/17 20:59 01/04/17 21:01 50 MG Insulin Aspart (novoLOG ASPART) SLIDING SCALE G... ACHS SC 01/03/17 16:00 02/02/17 15:59 01/05/17 11:00 5 UNITS Enoxaparin Sodium (Lovenox Inj) 40 mg QPM SQ 01/03/17 21:00 02/02/17 20:59 Pantoprazole Sodium (Protonix Tab) 40 mg QAM PO 01/04/17 09:00 02/03/17 08:59 Glucose (Glucose 40% Gel) 15-30 GRAMS 15 GRAMS... UD PRN PO 01/03/17 16:45 02/02/17 16:44 Glucose (Glucose Chew Tab) 4-8 Tablets 4 Tabl... UD PRN PO 01/03/17 16:45 02/02/17 16:44 Dextrose (Dextrose 50% 50ML Syringe) 25-50ML OF 50% DW IV FOR... UD PRN IV 01/03/17 16:45 02/02/17 16:44 Glucagon (Glucagon Inj) 1 mg UD PRN SQ 01/03/17 16:45 02/02/17 16:44 Miscellaneous (Iv Fluids Completed) 1 ea PRN PRN N/A 01/03/17 17:15 01/03/18 17:14 Gadobutrol (Gadavist) 7 mmol UD PRN IV 01/03/17 17:15 01/07/17 17:14 Naproxen (Naprosyn Tab) 500 mg Q12H PRN PO 01/03/17 18:15 02/02/17 18:14 01/03/17 18:43 500 MG Tramadol HCl (Ultram Tab) 50 mg Q4H PRN PO 01/03/17 22:00 02/02/17 21:59 01/05/17 10:51 50 MG Gabapentin 800 mg 800 mg TID PO 01/04/17 21:00 02/03/17 20:59 01/05/17 13:14 800 MG Sodium Chloride (Nss 1000ml) 1,000 ml @ 150 mls/hr Q6H40M IV 01/04/17 16:30 02/03/17 16:29 01/05/17 12:12 150 MLS/HR Insulin Glargine (Lantus Solostar Pen) 10 unit HS SC 01/04/17 21:00 02/03/17 20:59 01/04/17 21:06 10 UNIT Gadobutrol (Gadavist) 7 mmol UD PRN IV 01/05/17 00:00 01/09/17 00:00 Assessment and Plan Assessment and Plan: This is a 51 yo female with a history of depression, T2DM, chronic pain disorder , who presents with new onset pain and numbness on the left side. 1. 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 -No immediate evidence of MS on CSF analysis (mildly elevated protein) -Other possible causes include psychiatric, DM neuropathy -No evidence of intracranial abnormalities or spinal cord lesions on MRI/CT -Should follow up with outpatient neurology. -JAYASHREE positive. Does not appear to meet criteria for SLE at this time. 2. T2DM: -Elevated HbA1c and elevated blood glucose during hospital stay. -Consider tighter glucose control -May be partly responsible for neurologic symptoms 3. Discharge: -Following resting period after LP should be safe to discharge home -Will follow up with Dr. Ryan in outpatient neuro. -Consider follow up with rheumatology for further investigation into positive JAYASHREE and vague symptoms. -F/u with PCP following hospitalization. Continued [facility] stay due to: inadequate oral pain control Discharge planning: home
[2017-01-05] MEDS ORDERED: GABA800T2 PO (18:19)
[2017-01-05] MEDS ORDERED: NAPR500T3 PO (18:19)
--- NOTE | 2017-01-05 18:36 | Discharge Instructions ---
Discharge Instructions Date of Service January 05, 2017. Admission Reason for Admission: Numbness in multiple locations Discharge Discharge Diagnosis / Problem: Numbness in multiple locations Discharge Goals Goal(s): Learn about illness, Diagnostic testing, Therapeutic intervention Activity Recommendations Activity Limitations: resume your previous activity (as tolerated) . Instructions / Follow-Up Instructions / Follow-Up From Dr. Hanson - 1. Post lumbar puncture - * please drink plenty of fluids tonight and into tomorrow * if you experience any headache that is worse with going from lying to sitting or from sitting to standing this could be a sign of a "spinal headache" * if you are concerned about a spinal headache please report back to [facility] right away 2. Numbness - * the exact cause at this time is unknown * the numbness in the left leg may be coming from the L4/L5 disc herniation as seen on MRI; however, it is small and should stabilize/improve with time * please increase your gabapentin to 800mg three times a day * new prescription sent to [facility] * please also take naprosyn 500mg twice daily for 7 days; be sure to take this with food; prescription sent to [facility] * if you experience stomach upset from the naprosyn you may want to take an acid legal instruments examiner ([id number] prilosec, nexium, etc) while taking the naprosyn * do not take for longer than a week * please follow-up with Dr. Ryan's office within the next week to discuss additional testing, etc 3. Please see Dr. Schmidt from rheumatology in the next 2 weeks. An JAYASHREE test was sent (screen for lupus) and will be back by the time you see him. 4. Please see your family doctor THIS WEEK to discuss your diabetes as it appears you would likely benefit from insulin at this time. Please resume your metformin and victoza as previous. 5. Return to [facility] with any fever over 100.5 degrees, numbness/weakness that has become debilitating, difficulty walking, slurred speech, etc. Current Hospital Diet Patient's current hospital diet: Diabetes Type 2 Diet Discharge Diet Recommended Diet: Diabetes Type 2 Diet Procedures Procedures Performed: MRI brain - normal. Lumbar puncture - normal, no signs of infection or MS. MRI of neck - largely normal. MRI of lumbar spine - very small herniated disc at L4-L5. Pending Studies Studies pending at discharge: yes List of pending studies: JAYASHREE test (blood test for lupus). CSF (spinal fluid) tests for lyme and MS. Laboratory Results Hemoglobin A1c Test 01/04/17 05:18 Range/Units Estimated Average Glucose 220 mg/dl Hemoglobin A1c 9.3 H 4.5-5.6 % Medical Emergencies . Who to Call and When: Medical Emergencies: If at any time you feel your situation is an emergency, please call 911 immediately. . Non-Emergent Contact Non-Emergency issues call your: Primary Care Provider Call Non-Emergent contact if: temperature is above 100.5, your pain is not controlled, your pain is worsening, your pain is unusual for you, your pain is concerning you, you have any medication questions . . "Provider Documentation" section prepared by Keagan Hanson. . VTE Core Measure Inpt VTE Proph given/why not?: Nevin Stockings, SCD's
--- NOTE | 2017-01-06 09:38 | Discharge Summary ---
Discharge Summary Date of Service January 06, 2017. Discharge Summary Admission Date: January 03, 2017 at 16:06 Discharge Date: January 05, 2017 Discharge Disposition: Home Principal Diagnosis: paresthesias of uncertain etiology Problems/Secondary Diagnoses: 1. 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 chronic pain syndrome 3. uncontrolled T2DM 4. small pericardial effusion - chronic 5. fibromyalgia 6. chronic leukopenia 7. HTN 8. depression 9. headaches Procedures: 1. echocardiogram: * -- Conclusions -- * There is mild concentric left ventricular hypertrophy. * The left ventricle is hyperdynamic. * Small pericardial effusion that is unchanged from prior exam. * Compared to an exam from 07/2015, there is no significant change 2. CT head negative for acute pathology 3. LLE venous doppler negative for DVT 4. MRI brain negative for acute pathology 5. Cervical spine MRI - FINDINGS: Alignment of the cervical spine is anatomic. Vertebral body heights are maintained. A 1.1 cm T1 and T2 hyperintense lesion within the T3 vertebral body is unchanged since MRI of July 01, 2016. This does not enhance. This is likely benign. Cervical cord signal and caliber are normal. There is no intracanalicular mass or fluid collection. Paravertebral soft tissues are unremarkable. C2-C3: The central canal and neural foramen are patent. C3-C4: The central canal and neural foramen are patent. There is minimal disc bulge. C4-C5: The central canal and neural foramen are patent. C5-C6: The central canal and neural foramen are patent. There is minimal uncovertebral hypertrophy. C6-C7: There is minimal disc bulge. The central canal and neural foramen are patent. C7-T1: The central canal and neural foramen are patent. 6. MRI lumbar spine - IMPRESSION: 1. Minimal degenerative disc disease and facet arthrosis of the lumbar spine. Tiny left paracentral disc protrusion at L4-L5 that results in mild narrowing of the left lateral recess. 2. No fracture or suspicious marrow replacement. 7. Fluoro-Guided Lumbar Puncture by Dr. Chávez, radiology Consultations: ID - Avtar Maier MD Neurology - Jose Ryan MD Medication Reconciliation New Medications: Naproxen (Naproxen) 500 Mg Tab 1 TAB PO BID, #30 TAB 0 Refills take with food Changed Medications: Gabapentin (Neurontin) 800 Mg Tab 1 TAB PO TID for 30 Days, #90 TAB 0 Refills (Changed from: Gabapentin (Neurontin ) 300 Mg Cap 600 Mg PO TID) Continued Medications: Ascorbic Acid (Vitamin C) 500 Mg Tab 1000 MG PO QDL Cholecalciferol (Vitamin D3) 5,000 Unit Tab 5000 UNITS PO DAILY LUNCH Clonazepam (Clonazepam) 0.5 Mg Tab 0.5 MG PO HS, #90 Coenzyme Q10 (Ubidecarenone) (Coq-10) 100 Mg Cap 100 MG PO QDL Epinephrine (Epipen) 0.3 Mg/0.3 Ml Inj 0.3 MG IM UD for BEESTINGS, BOX Liraglutide (Victoza) 18 Mg/3 Ml Inj 1.8 SQ QAM Metformin Hcl (Glucophage) 1,000 Mg Tab 1000 MG PO BID, #180 Metoprolol Succinate (Toprol Xl) 50 Mg Tabcr 50 MG PO DAILY, #30 TAB Multiple Vitamin (Multivitamin) 1 Tab Tab 1 TAB PO DAILY, TAB [place]-3 Fatty Acids ([place] 3) 1 Cap Cap 1 CAP PO DAILY Probiotic Product (Probiotic) 1 Tab Tab 2 TAB PO QAM Trazodone Hcl (Desyrel) 50 Mg Tab 50 MG PO HS, #90 Discharge Exam Physical Exam: General Appearance: WD/WN, no apparent distress, + pertinent finding (flat affect) ENT: pharynx normal Neck: no JVD Respiratory/Chest: lungs clear, no respiratory distress, no accessory muscle use Cardiovascular: regular rate, rhythm, no gallop, no murmur, normal peripheral pulses Abdomen / GI: normal bowel sounds, non tender, soft, no organomegaly Extremities: no pedal edema, + pertinent finding (tender in multiple locations with palpation but particularly in the shoulder regions b/l ) Neurologic/Psychiatric: alert, normal reflexes, oriented x 3, + sensory deficit (left leg in the L5 dermatome - decreased sensation ), + depressed affect Skin: no rash Hospital Course HISTORY OF PRESENT ILLNESS: Patient is a pleasant 51 y/o female, with PMHx of lyme disease w/ carditis, chronic pain disorder, depression and T2DM who presented to the ED because of body numbness/tingling and left-sided facial numbness. Patient admits to complete left sided facial numbness, stating "it feels like I was injected with lidocaine and it is wearing off." Facial symptoms began today. Patient was diagnosed with lyme disease in 2013. Since that time, patient has been experiencing chronic total body pain. However, patient states that over the last couple of months, pain has started to worsen. Then, over the last three days, she has noticed the pain becoming very severe. Patient admits to numbness and tingling of the left side of the body. However, she states that the left- sided numbness and tingling is today. Over the last couple of days, it was on both sides of the body. She figured it was just a flare of her chronic pain, until today when she experienced left sided facial numbness, which is what prompted her to come to the ED. According to the , patient was having difficulty ambulating today. She admits to difficulty with focusing. She denies any recent illnesses. She denies history of DVT/PE, TIA/CVA. She denies any confusion, vision changes, speech difficulty, facial droop. +epigastric/central chest discomfort; this has been ongoing for patient for a couple of months now. Pain does not radiate. She denies any alleviating/aggravating factors. +nausea. +worsening body aches/pain. She denies any recent tick bites or rashes. Patient denies any fever, chills, sweats, lightheadedness, dizziness, vision changes, palpitations, edema, SOB, wheezing, cough, vomiting, diarrhea, urinary symptoms , melena, active bleeding, or new skin discoloration/changes. HOSPITAL COURSE: 1. paresthesias in multiple locations - The patient was seen in consult by Dr. Jose Ryan who follows her in the neurology clinic. Extensive work-up for this presenting complaint was largely negative. MRI brain, cervical spine, and lumbar spine were normal with the exception of a mild L4-L5 disc herniation that could explain her left leg symptoms only. CSF cell counts were normal, and total protein was modestly elevated. CSF studies to rule out multiple sclerosis were sent and were pending at time of discharge. However, in light of her negative MRI scans, the likelihood for MS is very low. Cortisol level this admission was normal. B12, B6, and B1 levels in the recent past were normal. TSH was also normal. Has been treated for chronic lyme's but doubt this is the cause especially in light of the negative CSF cell counts. As a precautionary measure CSF lyme PCR was sent. JAYASHREE screen in the past had been modestly positive. Thus, in light of the small pericardial effusion and perplexing symptomatology, we felt it was reasonable to repeat the JAYASHREE. This, too, was pending at discharge. At discharge the following were recommended - 1. increase in her gabapentin to 800mg TID 2. follow-up with Dr. Ryan within 1 week 3. follow-up with Dr. Schmidt, [facility], who had seen her in the past for her fibromyalgia In light of her extensive negative work-up the question of diabetic polyneuropathy could be entertained. Will defer to Dr. Ryan from neurology on additional diagnostic testing. 2. T2DM - uncontrolled, with hemoglobin a1c of 9.3%. We discussed that, in light of her long-standing diabetes (17 years), she should consider insulin therapy. She will continue to discuss this with her PCP. She confirmed that this has been recommended by her PCP but she had been reluctant to initiate insulin. She will continue the metformin and victoza for now. 3. chronic pain syndrome, paresthesias, fibromyalgia - gabapentin was increased to 800mg TID. Cortisol level was normal. Sed rate was 2. CPK was normal. JAYASHREE was sent and was pending at discharge (see #1 above). 4. left leg paresthesias - Possibly due to the small L4-L5 disc herniation seen on MRI. Recommended ongoing use of gabapentin and a course of naprosyn. 5. small pericardial effusion - Etiology of such is uncertain. It is chronic, small in size, and has not changed over time. Rheumatology follow-up was recommended to ensure this is not a sign of an underlying rheumatological condition. Total Time Spent: Greater than 30 minutes This includes examination of the patient, discharge planning, medication reconciliation, and communication with other providers. Discharge Instructions Please refer to the electronic Patient Visit Report (Discharge Instructions) for additional information. Follow-Up 1. see Dr. Ryan or his associates within 1 week of discharge 2. see Dr. Reddy, PCP, within 5 days Additional Copies To Dane Reddy D.O.; Tio Schmidt M.D.; Kavya Ryan M.D.
[2017-01-14 13:29] LABS: ALBUMIN 3.7 g/dL (3.5-4.9); IGG CSF 3.3 mg/dL (0.8-7.7); IGG SERUM 646 mg/dL (694-1618); LYME DNA PCR CSF OR SYNOVIAL Not detected (Not Detected); LYME DNA SOURCE CSF; MYELIN BASIC PROTEIN 663 <2.0 mcg/L (0.0-4.0)
== END 2017-01-05 19:20 | disposition home or self-care (01) ==
LOC: ENRESERVTM → ENRESERVDT → C.EDB 12:37 → C.MED 16:06 → EDBEDREQ 16:18
PROVIDERS: ADMIT Hospitalist; ATTEND Internal Medicine
DX: R20.2 Paresthesia of skin (principal); R20.0 Anesthesia of skin; R07.9 Chest pain, unspecified; I31.3 Pericardial effusion (noninflammatory); E11.65 Type 2 diabetes mellitus with hyperglycemia; M79.7 Fibromyalgia; D72.819 Decreased white blood cell count, unspecified; I10 Essential (primary) hypertension; F32.9 Major depressive disorder, single episode, unspecified; G89.4 Chronic pain syndrome; A69.20 Lyme disease, unspecified; M51.26 Other intervertebral disc displacement, lumbar region; Z90.49 Acquired absence of other specified parts of digestive tract; Z87.891 Personal history of nicotine dependence; Z85.038 Personal history of other malignant neoplasm of large intestine; Z83.3 Family history of diabetes mellitus; Z84.1 Family history of disorders of kidney and ureter; Z83.6 Family history of other diseases of the respiratory system

== ENCOUNTER 2017-01-11 13:20 | Emergency (ER) | payer BC ==
[~2017-01-11] VITALS: Ht 162.6 cm; Wt 74.3 kg
[~2017-01-11 13:20] MED LIST changes: -CBD OIL SL; -GABA-113 PO; +GABA800T2 PO; -MAGNESIUM MALATE PO; +MULTTAB58 PO; +NAPR500T3 PO; +OMEG12006 PO; -omega 3 PO
[2017-01-11 13:27] VITALS: TEMP 36.7; Ht 162.6 cm; Wt 74.3 kg
[2017-01-11] MEDS ORDERED: OPTIRAY 320 IV PRN (14:00)
[2017-01-11] MEDS ORDERED: INSU1INJ33 SQ (14:26)
--- NOTE | 2017-01-11 14:36 | DIAGNOSTIC IMAGING REPORT ---
CHEST CTA for PULMONARY ARTERIES CT DOSE: 215.37 mGy.cm HISTORY: Chest pain dyspnea TECHNIQUE: Multiaxial CT images of the chest were performed following the intravenous administration of contrast to evaluate the pulmonary arteries. Maximal intensity projection images were also obtained. COMPARISON STUDY: 12/17/2010 FINDINGS: There is a normal caliber thoracic aorta with no evidence for dissection. There is no evidence for pulmonary embolus. No pleural effusions. No pneumothorax. The liver and spleen are unremarkable. No mediastinal or hilar lymphadenopathy. The central airways are patent. The lungs are clear. Minimal atelectatic change peripheral aspect right middle lobe IMPRESSION: No evidence for pulmonary embolus. Electronically signed by: Diony London M.D. 01/11/2017 2:34 PM Dictated Date/Time: 01/11/2017 2:32 PM
--- NOTE | 2017-01-11 15:36 | EMERGENCY ROOM VISIT NOTE ---
History Report prepared by Darvin: Nakul Concepcion Under the Supervision of: Dr. Austin Macias D.O. First contact with patient: 13:43 Chief Complaint: NAUSEA Stated Complaint: SOB,HEADACHE,WEAKNESS,NAUSEA,VOMITING Nursing Triage Summary: Pt states she had swelling in bilateral legs the other day, DDimer was high, they called her today to come to ED. Pt c/o n/v this am. History of Present Illness The patient is a 51 year old female who presents to the Emergency Room with abnormal lab results that occurred prior to arrival. She currently rates her discomfort a 6/10 in severity. The patient states that her extremities were swollen yesterday. She reports that she called her PCP and he wanted the patient to get blood work done. The patient states that she received a call this morning saying her D-Dimer was [phone], and she was told to come to the ER for a CT. She notes that last evening she had sudden sharp chest pain. The patient reports that she had an EKG done last week and it was normal. She notes that she had an LP to check for MS, Lyme Disease, and specific protein, but she has not received the results yet. The patient complains of nausea, vomiting, shortness of breath, and a headache. Source of History: patient Onset: prior to arrival Position: other (global) Symptom Intensity: 6/10 Quality: other (abnormal labs) Timing: constant Associated Symptoms: + SOB, + chest pain, + headache, + nausea, + vomiting Note: Associated symptoms: edema Review of Systems See HPI for pertinent positives & negatives. A total of 10 systems reviewed and were otherwise negative. Past Medical & Surgical Medical Problems: (1) Depression (2) Diabetes mellitus type 2 in nonobese (3) Fibromyalgia (4) HTN (hypertension) (5) Hypotension, iatrogenic (6) Lyme disease (7) Stroke-like symptoms (8) Tachycardia (9) Total body pain Surgical Problems: (1) Hx of cardiac cath (2) S/P cholecystectomy (3) S/P partial colectomy (4) S/P tubal ligation Family History Cancer FATHER Diabetes mellitus FATHER MOTHER SISTER FH: heart disease FATHER FHx: gallbladder disease FHx: lung disease MOTHER Hypertension FATHER MOTHER Kidney disease Kidney stones Social History Smoking Status: Former Smoker Alcohol Use: none Drug Use: none Marital Status: Housing Status: lives with family Occupation Status: unemployed, disabled Current/Historical Medications Scheduled Cholecalciferol (Vitamin D3), 5,000 UNITS PO DAILY Clonazepam (Clonazepam), 0.5 MG PO HS Coenzyme Q10 (Ubidecarenone) (Coq-10), 100 MG PO QDL Epinephrine (Epipen), 0.3 MG IM UD Gabapentin (Neurontin), 1 TAB PO TID Insulin Degludec (Tresiba Flextouch), 12 UNITS SQ HS Liraglutide (Victoza), 1.8 SQ QAM Metformin Hcl (Glucophage), 1,000 MG PO BID Metoprolol Succinate (Toprol Xl), 75 MG PO DAILY Multiple Vitamin (Multivitamin), 1 TAB PO DAILY Naproxen (Naproxen), 1 TAB PO BID [place]-3 Fatty Acids ([place] 3), 1 CAP PO DAILY Probiotic Product (Probiotic), 2 TAB PO QAM Trazodone Hcl (Desyrel), 50 MG PO HS Allergies Coded Allergies: Bee Venom (Verified Allergy, Severe, LOCALIZED SWELLING, 01/11/17) Moxifloxacin (Verified Allergy, Mild, RASH, 01/11/17) Physical Exam Vital Signs Date Time Temp Pulse Resp B/P Pulse Ox O2 Delivery O2 Flow Rate FiO2 01/11/17 14:39 98 12 117/82 98 01/11/17 13:27 36.7 113 17 140/84 97 Room Air Physical Exam CONSTITUTIONAL/VITAL SIGNS: Reviewed / noted above. GENERAL: Non-toxic in appearance. INTEGUMENTARY: Warm, dry, and [place]. HEAD: Normocephalic. EYES: without scleral icterus or trauma. ENT/OROPHARYNX: clear and moist. LYMPHADENOPATHY/NECK: Is supple without lymphadenopathy or meningismus. RESPIRATORY: Lungs clear and equal. CARDIOVASCULAR: Regular rate and rhythm. GI/ABDOMEN: Soft and nontender. No organomegaly or pulsatile mass. No rebound or guarding. Normal bowel sounds. EXTREMITIES: Warm and well perfused. BACK: No CVA tenderness. NEUROLOGICAL: Intact without focal deficits. PSYCHIATRIC: normal affect. MUSCULOSKELETAL: Normally developed with good muscle tone. Medical Decision & Procedures ER Provider Diagnostic Interpretation: CT results as stated below per my review and radiologist interpretation: CHEST CTA for PULMONARY ARTERIES CT DOSE: 215.37 mGy.cm HISTORY: Chest pain dyspnea TECHNIQUE: Multiaxial CT images of the chest were performed following the intravenous administration of contrast to evaluate the pulmonary arteries. Maximal intensity projection images were also obtained. COMPARISON STUDY: 12/17/2010 FINDINGS: There is a normal caliber thoracic aorta with no evidence for dissection. There is no evidence for pulmonary embolus. No pleural effusions. No pneumothorax. The liver and spleen are unremarkable. No mediastinal or hilar lymphadenopathy. The central airways are patent. The lungs are clear. Minimal atelectatic change peripheral aspect right middle lobe IMPRESSION: No evidence for pulmonary embolus. Electronically signed by: Diony London M.D. 01/11/2017 2:34 PM Dictated Date/Time: 01/11/2017 2:32 PM Laboratory Results Test 01/11/17 13:54 Bedside D-Dimer > 450 ng/mlFEU (0-450) Laboratory results as stated above per my review. ED Course 1345: Previous medical records were reviewed. The patient was evaluated in room B06. A complete history and physical examination was performed. 1536: On reevaluation, the patient is feeling better. I discussed the results and findings with the patient. She verbalized agreement of the treatment plan. She was discharged home. Medical Decision the differential was considered includes acute myocardial infarction, acute coronary syndrome, myocarditis, pericarditis, pericardial effusions /tamponade, esophageal perforation, thoracic aortic dissection, pulmonary embolism, pneumonia, pneumothorax, pancreatitis, shingles, acute cholecystitis, perforated abdominal viscus. This is a 51-year-old female who presents to the ED with a chief complaint of elevated d-dimer. The patient had outpatient blood work that revealed an elevated d-dimer. This was done a couple of days ago. She was sent here for CT scan to rule out PE. Her exam was unremarkable. She is asymptomatic. The patient does have an elevated d-dimer here. A CT scan did not show PE or acute abnormality. She is felt to be stable for discharge. Impression Primary Impression: Precordial chest pain Additional Impression: Elevated d-dimer Scribe Attestation The scribe's documentation has been prepared under my direction and personally reviewed by me in its entirety. I confirm that the note above accurately reflects all work, treatment, procedures, and medical decision making performed by me. Departure Information Dispostion Home / Self-Care Referrals Dane Reddy D.O. (PCP) Patient Instructions [facility] Additional Instructions Your CT scan did not show any acute abnormalities. Follow-up with your doctor for further care and evaluation in 3-7 days. Return to the emergency department for worsening or new symptoms or any concerns. You have been examined and treated today on an emergency basis only. This is not a substitute for, or an effort to provide, complete comprehensive medical care. It is impossible to recognize and treat all injuries or illnesses in a single emergency department visit. It is therefore important that you follow up closely with your doctor. Call as soon as possible for an appointment. Problem Qualifiers
[2017-01-11 15:48] VITALS: BP 118/90; PULSE 74; O2SAT 99
== END 2017-01-11 16:15 | disposition home or self-care (01) ==
LOC: C.EDB 13:22
DX: R79.1 Abnormal coagulation profile (principal); R07.2 Precordial pain; F32.9 Major depressive disorder, single episode, unspecified; E11.9 Type 2 diabetes mellitus without complications; M79.7 Fibromyalgia; I10 Essential (primary) hypertension; Z90.49 Acquired absence of other specified parts of digestive tract; Z98.51 Tubal ligation status; Z80.9 Family history of malignant neoplasm, unspecified; Z83.3 Family history of diabetes mellitus; Z82.49 Family history of ischemic heart disease and other diseases of the circulatory system; Z84.1 Family history of disorders of kidney and ureter; Z87.891 Personal history of nicotine dependence; Z79.899 Other long term (current) drug therapy

== ENCOUNTER → 2017-01-13 | Outpatient (CLI) | payer BC ==
[~2017-01-13] MED LIST changes: +INSU1INJ33 SQ
[2017-01-18 02:44] LABS: ANTI-CENTROMERE AB <1.0 NEG AI (<1.0 NEG); ANTI-SS-A <1.0 NEG AI (<1.0 NEG); ANTI-SS-B <1.0 NEG AI (<1.0 NEG); DNA ds CRITHIDIA NEGATIVE (NEGATIVE); MICROSOMAL AB <1 IU/ML (<9); Sm Antibody <1.0 NEG AI (<1.0 NEG)
== END | disposition home or self-care (01) ==
LOC: C.LAB 17:07
PROVIDERS: ATTEND Physician Assistant
DX: M62.81 Muscle weakness (generalized) (principal)

== ENCOUNTER → 2017-02-07 | Outpatient (CLI) | payer BC ==
[~2017-02-07] MED LIST changes: -ASCA500 PO
[2017-02-13 21:18] LABS: ANAPLASMA PHAGOCYTOPHIL IGG <1:64 (<1:64); ANAPLASMA PHAGOCYTOPHIL IGM <1:20 (<1:20)
== END | disposition home or self-care (01) ==
LOC: C.LAB 10:04
PROVIDERS: ATTEND Psychiatry & Neurology Neurology
DX: R51 Headache (principal); M79.1 Myalgia; R53.83 Other fatigue; G62.9 Polyneuropathy, unspecified

== ENCOUNTER → 2017-02-10 | Day surgery (SDC) | payer BC ==
[~2017-02-10] VITALS: Ht 162.6 cm; Wt 73.0 kg
[~2017-02-10] MED LIST changes: +CEFTRIAXONE SOD INJ 2000 MG in DEXTROSE 5% 50ML IV SCH
[2017-02-10 08:54] VITALS: BP 132/84; PULSE 97; TEMP 36.5; O2SAT 97; Ht 162.6 cm; Wt 73.0 kg
== END | disposition home or self-care (01) ==
LOC: C.MTU 08:49
PROVIDERS: ATTEND Psychiatry & Neurology Neurology
DX: R93.8 Abnormal findings on diagnostic imaging of other specified body structures (principal); R76.8 Other specified abnormal immunological findings in serum

== ENCOUNTER → 2017-02-18 | Outpatient (CLI) | payer BC ==
[~2017-02-18] MED LIST changes: -CEFTRIAXONE SOD INJ 2000 MG in DEXTROSE 5% 50ML IV SCH; -INSU1INJ33 SQ; -NAPR500T3 PO
--- NOTE | 2017-02-18 16:17 | DIAGNOSTIC IMAGING REPORT ---
Ultrasound left arm LEFT EXTREMITY NONVASCULAR LIMITED CLINICAL HISTORY: PAIN IN L UPPER ARM pain TECHNIQUE: Ultrasound COMPARISON STUDY: None FINDINGS: Lipoma of the soft tissues of the upper left arm. Maximum dimensions are 1.5 x 1.0 cm. All remaining soft tissue structures are unremarkable. IMPRESSION: Upper left arm nodule resembling a benign lipoma. Otherwise negative study Electronically signed by: Diony London M.D. 02/18/2017 4:16 PM Dictated Date/Time: 02/18/2017 4:15 PM
== END | disposition home or self-care (01) ==
LOC: C.ULTR 15:35
PROVIDERS: ATTEND Family Medicine
DX: M79.622 Pain in left upper arm (principal)

== ENCOUNTER → 2017-07-08 | Outpatient (CLI) | payer BC ==
--- NOTE | 2017-07-09 07:44 | MAMMOGRAPHY REPORT ---
BILATERAL DIGITAL SCREENING MAMMOGRAM TOMOSYNTHESIS WITH CAD: 07/08/2017 CLINICAL HISTORY: Routine screening. TECHNIQUE: Breast tomosynthesis in addition to standard 2D mammography was performed. Current study was also evaluated with a Computer Aided Detection (CAD) system. COMPARISON: Comparison is made to exams dated: 09/15/2013 mammogram, 07/17/2012 mammogram - [facility], 03/31/2008 mammogram - [facility], 05/29/2016 mammogram - [facility], 02/06/2015 mammogram - [facility], and 01/23/2006 mammogram - [facility]. BREAST COMPOSITION: The tissue of both breasts is heterogeneously dense, which may obscure small mas ses. FINDINGS: The parenchymal pattern is unchanged. No developing mass, architectural distortion or clus ter of suspicious microcalcifications is seen in either breast. IMPRESSION: ACR BI-RADS CATEGORY 2: BENIGN There is no mammographic evidence of malignancy. A 1 year screening mammogram is recommended. The pa tient will receive written notification of the results. Approximately 10% of breast cancers are not detected with mammography. A negative mammographic report should not delay biopsy if a clinically suggestive mass is present. Serena Chiang M.D. ay/:07/08/2017 15:26:45 Odd Shoe Examiner: Jodi MOYA(Kwadwo)([place]), [facility] letter sent: Normal 1/2 BI-RADS Code: ACR BI-RADS Category 2: Benign
== END | disposition home or self-care (01) ==
LOC: C.MAMM 10:43
PROVIDERS: ATTEND Family Medicine
DX: Z12.31 Encounter for screening mammogram for malignant neoplasm of breast (principal)

== ENCOUNTER → 2017-10-07 | Outpatient (CLI) | payer BC ==
--- NOTE | 2017-10-07 08:38 | DIAGNOSTIC IMAGING REPORT ---
ABDOMINAL ULTRASOUND COMPLETE HISTORY: Right upper quadrant abdominal pain.. COMPARISON: None. FINDINGS: Pancreas: The pancreas demonstrates a normal echotexture. Liver: The liver is echogenic consistent with fatty change. Gallbladder: The gallbladder is surgically absent. CBD: 9 mm. This is likely due to the patient's postcholecystectomy state. Kidneys: No hydronephrosis. Spleen: 13.2 cm. No splenic masses. Aorta: Normal in caliber. IVC: Patent. IMPRESSION: 1. Hepatic steatosis. 2. Cholecystectomy. 3. Mild splenomegaly. Electronically signed by: Mehdi Culp M.D. 10/07/2017 8:36 AM Dictated Date/Time: 10/07/2017 8:34 AM
== END | disposition home or self-care (01) ==
LOC: C.ULTR 07:55
PROVIDERS: ATTEND Family Medicine
DX: R10.11 Right upper quadrant pain (principal)

== ENCOUNTER → 2017-10-14 | Outpatient (CLI) | payer BC | END | disposition home or self-care (01) | LOC: C.LAB 08:23 | PROVIDERS: ATTEND Psychiatry & Neurology Neurology | DX: M79.7 Fibromyalgia (principal); R53.83 Other fatigue; M62.81 Muscle weakness (generalized); G62.9 Polyneuropathy, unspecified; R76.8 Other specified abnormal immunological findings in serum; R20.0 Anesthesia of skin ==

== ENCOUNTER 2019-10-20 06:44 | Observation (INO) ==
--- NOTE | 2019-10-18 08:58 | Anesthesiology Consultation ---
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 At appt, cardio recommended biventricular ICD implanted given severe nonischemic cardiomyopathy and chronic LBBB. Patient was later seen on 10/05/2019 to discuss ICD procedurepatient and agreed to proceed. Dr. Doherty did start Lasix 20 mg and scheduled patient for ICD procedure. May need to repeat lab work day of procedure or next week given Lasix being started. History Surgery Operation Date: 10/20/19 08:00 Proposed Procedures p Biventricular ICD Implant w/Anesthesia - Rufina Doherty, Height/Weight Height: 5 ft 4.5 in Weight: 74.843 kg Allergies Allergy/AdvReac Type Severity Reaction Status Date / Time bee venom protein (honey bee) Allergy Severe LOCALIZED Verified 10/15/19 12:18 SWELLING moxifloxacin Allergy Mild RASH Verified 10/15/19 12:18 adhesive tape Allergy Rash Verified 10/15/19 16:44 Avelox TABS Allergy Unknown Rash Uncoded 10/15/19 12:18 Sulfa Drugs Allergy Unknown Unknown Uncoded 10/15/19 12:18 Medications Home Medications Medication Instructions Recorded Confirmed Last Taken coenzyme Q10 100 mg capsule 100 mg PO DAILY cap 04/02/19 10/15/19 Unknown cyanocobalamin (vitamin B-12) 5,000 mcg SL DAILY 04/02/19 10/15/19 Unknown 5,000 mcg sublingual tablet epinephrine 0.3 mg/0.3 mL 0.3 mg SUBCUT UD PRN ea 04/02/19 10/15/19 Unknown injection, auto-injector liraglutide 0.6 mg/0.1 mL (18 mg/3 1.8 mg SQ QAM ml 04/02/19 10/15/19 Unknown mL) subcutaneous pen injector magnesium glycinate 300 mg PO TID 04/02/19 10/15/19 Unknown metformin 1,000 mg tablet 1,000 mg PO BID tab 04/02/19 10/15/19 Unknown ascorbate calcium (vitamin C) 500 500 mg PO DAILY 05/17/19 10/15/19 Unknown mg tablet lactobacillus combination no.8 3 3,000 mmu cells PO DAILY 05/17/19 10/15/19 Unknown billion cell capsule metoprolol tartrate 50 mg tablet 100 mg PO BID tab 05/17/19 10/15/19 Unknown sacubitril 97 mg-valsartan 103 mg 1 tab PO BID 05/17/19 10/15/19 Unknown tablet D-Ribose 1 dose PO DAILY 10/15/19 10/15/19 Unknown furosemide 20 mg PO QAM 10/15/19 10/15/19 Unknown melatonin 3 mg PO HS 10/15/19 10/15/19 Unknown zinc oxide 15 mg PO BID 10/15/19 10/15/19 Unknown Past Medical History Medical History (Updated 10/18/19 @ 09:51 by Kari Cannon PA-C) Anemia unk etiology - required blood transfusion 2015 - Dr. Parks Cervical radiculopathy Degenerative disc disease Depression Diabetes mellitus, type 2 NIDDM Diverticular disease Fibromyalgia Heart failure History of migraine HTN (hypertension) Hyperlipidemia Idiopathic cardiomyopathy LBBB (left bundle branch block) Lyme disease "chronic lyme" - treated by Dr. 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 then recently decreased again) Polyneuropathy Past Family History Family History Family/Other Alzheimer disease Cancer Hypertension Mother Complex regional pain syndrome I Diabetes Congestive heart failure COPD (chronic obstructive pulmonary disease) Father Prostate cancer Diabetes Myelodysplastic syndrome Colorectal cancer Sister Diabetes Other No family history of adverse response to anesthesia Past Surgical History Surgical History (Updated 10/18/19 @ 09:51 by Kari Cannon PA-C) H/O breast biopsy H/O ovarian cystectomy H/O resection of small bowel Secondary to diverticulitis History of cardiac catheterization Right Heart cath- 1 year ago - - [facility] - no stents/angioplasty History of cholecystectomy History of endometrial ablation History of hysteroscopy History of shoulder surgery LEFT History of total abdominal hysterectomy and bilateral salpingo-oophorectomy History of tubal ligation Hx of cholecystectomy Social History Smoking Status: Former smoker tobacco type: cigarettes Do You Dip or Chew Tobacco: No Smoking End Date: years ago Hx Alcohol Use: Yes Alcohol type: wine alcohol intake frequency: holidays/special occasions only Hx Substance Use: No Testing Laboratory Results 10/05/19= WBC: 7.25 H/H: 11.7/37.1 PLATELETS: 238 SODIUM: 138 POTASSIUM: 4.9 CHLORIDE: 103 CO2: 24 BUN: 10 CREATININE: 0.8 GLUCOSE: 182 BNP= 1043 Electrocardiogram Date: 10/05/19 Findings: + NSR @ (99) Possible left atrial enlargement, LBBB. Compared to EKG from 08/28/2018nonspecific T wave abnormality now evident in lateral leads. Echocardiogram Date: 09/21/19 EF: 20 to 24% LV Function: Severely reduced Left ventricular cavity is mildly enlarged. Septal motion is abnormal consistent with LBBB. Severe diffuse LV hypokinesis. Diastolic dysfunction is present with systolic function is reduced. Mild AV sclerosis. Mild AR. Moderate MR. Trivial circumferential pericardial effusion is noted. Stress Test Date: 12/27/15 Type: DSE Resting EF: 50 to 59% Resting LV Function: normal Resting RWMA: + pertinent finding (Base septum is akinetic. Mid septum is hypokinetic at rest.) Valvular Disease: MR (Mild) Stress echo demonstrates a fixed wall motion abnormality without ischemia. MPHR 108%. Sinus tachycardia was noted at rest. Stress EKG response showed no evidence of ischemia. Small loculated anterior and right lateral pericardial effusion. Pericardial effusion contains marked fibrous strands. Cardiac tamponade is absent. Mild AR. Other Testing CT cardiac 12/01/2018 = Agatston calcium score is 158. The patient's age and sex matched coronary calcium content is 98% (BARTHOLOMEW). There is a small myocardial bridge attached to the left ventricular septum. This is seen in prior CT chest dated 2014. This is most likely normal variant. Right atrium is not well visualized due to artifact. However the right atrial mass is most likely a prominent kesha terminalis. If clinical concerns of thrombus could consider CARLOS further evaluation. PFT 02/28/19= FEV1 Actual Pre 2.52, FEV1 Actual Pre %Predict 91%; FEV1 Actual Post 2.77, FEV1 Actual Post %Change 10%. FVC is normal at 94% predicted. FEV1/FVC ration is less than predicted. Flow of air at 25-75% of vital capacity is mildly decreased at 77% of predicted and improves with bronchodilator. Lung volumes WNL. Diffusion capacity- uncorrected diffusion capacity is WNL- however was not corrected with patient's Hgb. No sig resposne to bronchodilator. PFT is within acceptable limits, compared to spirogram of October 2014- no significant change in FEV1 Right Heart cath 08/31/18= HC reveals: RA: 4, RV: 23/4, PA: 31/8 (18), PCWP: 9, PA Saturation: 70, CO / CI = 4.9/ 2.7, PVR: 1.8, SVR: 1400. RV BX done with echocardiographic and flouroscopic imagin samples sent to path (per cardio note- report not available)
[~2019-10-20 06:44] MED LIST changes: +CEFAZOLIN 1000MG 1,000 MG/7.5 ML SYR IV SCH; -CHOL1TAB46 PO; -COEN100C11 PO; -EPP3/2 IM; -GABA800T2 PO; -KLN5X PO; -LIRA18IN SQ; +LR 15ML/HR IV SCH; -METF-384 PO; -METO-217 PO; -MULTTAB58 PO; -OMEG12006 PO; -PROB1TAB16 PO; -TRAZ-120 PO
[2019-10-20] MEDS ORDERED: PROPOFOL IV EMULSION 10 MG/ML 100 ML VIAL IV ONE (07:00)
[2019-10-20] MEDS ORDERED: ePHEDrine sulfate 50 MG/ML AMP ONE (07:20)
[2019-10-20] MEDS ORDERED: PHENYLEPHRINE 100MCG/ML 5ML SYR ONE (07:20)
[2019-10-20] MEDS ORDERED: LIDOCAINE HCL 2% 2 ML VIAL/AMP(20MG/ML) INFIL ONE (07:20)
[2019-10-20] MEDS ORDERED: MIDAZOLAM HCL 1 MG/ML 2ML VIAL ONE (07:20)
[2019-10-20] MEDS ORDERED: fentaNYL citrate 100 MCG/2 ML VIAL ONE ×2 (07:20→09:04)
[2019-10-20] MEDS ORDERED: BUPIVACAINE 0.25% 30 ML VIAL ONE (07:44)
[2019-10-20] MEDS ORDERED: LIDOCAINE HCL 1% 20 ML VIAL ONE (07:44)
[2019-10-20] MEDS ORDERED: BACITRACIN INJ 50,000 UNIT VIAL ONE (07:45)
--- NOTE | 2019-10-20 07:54 | History & Physical Bridge Note ---
Date of Service October 20, 2019 History & Physical Bridge Note I have examined the patient, reviewed the History & Physical and in the interval since the performance of the History & Physical I have noted the following changes of clinical significance: no changes noted
[2019-10-20] MEDS ORDERED: CEFAZOLIN 250 MG/ML 1 GM VIAL ONE (08:05)
[2019-10-20] MEDS ORDERED: PHENYLEPHRINE HCL 10 MG/ML VIAL ONE (08:35)
[2019-10-20] MEDS ORDERED: PROPOFOL IV EMULSION 10 MG/ML 20 ML VIAL IV ONE ×2 (10:06→10:28)
[2019-10-20] MEDS ORDERED: ATROPINE SULFATE 0.1 MG/ML 10ML SYR IV PRN (10:34)
--- NOTE | 2019-10-20 10:38 | Operative Report ---
Post Operative Report Pre & Post Diagnosis NICM, LBBB, Chronic systolic HF NYHA Class II Operation Date: 10/20/19 08:00 <No data on this case meets the specified criteria> I identified the patient and participated in the time-out.: Yes Procedure Operation Date: 10/20/19 08:00 Actual Procedures p ICD Insertion Single or Dual - Rufina Doherty DO s Upgrade of any system to BIV - Rufina Doherty DO Surgeon Rufina Doherty, Supervisor Coin Machine none Estimated Blood Loss 25 Findings Consistent with Post-Op Diagnosis Specimens none Description of Procedure see official report I attest to the content of the Intraoperative Record and any orders documented therein. Any exceptions are noted below.
--- NOTE | 2019-10-20 10:38 | Post Anesthesia Assessment ---
Date of Service October 20, 2019 Post Sedation Assessment Vital Signs Temp Pulse Resp BP Pulse Ox 10/20/19 07:00 36.6 C 96 H 16 107/72 99 Recovery Score Activity: Moves 4 extremities Respiration: Deep Breath/Cough Circulation: +/-20% PreAnes Value Consciousness: Fully Awake Oxygen Saturation: > 92% On Room Air Discharge Sedation Level of Care: Fast Track Phase II Post Sedation Plan On clinical assessment, the patient appears to have tolerated the sedation without complications. Patient is recovering as anticipated. Patient will continue to be monitored by nursing and may be discharged when sedation discharge criteria are met per below protocol. Upon Completions of procedure up to 15 minutes continue every 5 minute vital signs and the P.A.R. score; then discharge to a Phase I or Fast Track to Phase II per the following guidelines: * Discharge Patient to appropriate Phase II area if PAR is 8 or greater or return to pre- procedure baseline. The post - procedure orders will be as directed. * If PAR score is less than 8 or not return to pre-procedure baseline then patient will follow Phase I monitoring till PAR is reached for Phase II. The Phase I may be done in procedure room or may call to secure a Phase I area. * If naloxone or flumazenil are used for reversal, hold in Phase I for continued monitoring from when last reversal dose was given for a minimum of 60 minutes or longer pending the nurse and/or physician discretion of patient condition before discharge to Phase II. Please call the Sedation Physician to re-evaluate and complete post-note for discharge to Phase II area. Do NOT discharge from procedure sedation or Phase 1 until post- sedation evaluation note is complete by procedure /sedation MD Sedation Discharge Instructions to be given to the patient at discharge to home.
[2019-10-20] MEDS ORDERED: ACETAMINOPHEN 325 MG TAB PO PRN (10:39)
[2019-10-20] MEDS ORDERED: SURGICAL BRA XX SCH (10:45)
[2019-10-20] MEDS ORDERED: KETOROLAC 30 MG/ML VIAL ONE (10:50)
[2019-10-20] MEDS ORDERED: MoRPHine SULFATE 2 MG/ML CARP IV PRN ×2 (10:51→11:16)
[2019-10-20] MEDS ORDERED: MoRPHine SULFATE 2 MG/ML CARP ONE ×2 (10:54→11:03)
[2019-10-20] MEDS ORDERED: MoRPHine SULFATE 2 MG/ML CARP IV STA (11:04)
[2019-10-20] MEDS ORDERED: EPINEPHRINE ADULT AUTO-INJECT 0.3 MG SYR IM PRN (11:26)
--- NOTE | 2019-10-20 11:53 | Anesthesiology Progress Note ---
Date of Service October 20, 2019 Anesthesia Post Procedure Vital Signs Vital Signs: Temp Pulse Resp BP Pulse Ox 10/20/19 11:30 86 18 123/81 99 10/20/19 11:15 86 18 119/81 99 10/20/19 11:00 88 18 102/75 99 10/20/19 10:45 92 H 18 120/77 99 10/20/19 07:00 36.6 C 96 H 16 107/72 99 Transfer of Care Handoff Completed per policy Notes Mental Status: alert / awake / arousable Patient Amnestic to Procedure: Yes Nausea / Vomiting: adequately controlled Pain: adequately controlled Airway Patency, RR, SpO2: stable & adequate BP & HR: stable & adequate Hydration State: stable & adequate Anesthetic Complications: no major complications apparent
[2019-10-20] MEDS ORDERED: MAGNESIUM GLYCINATE PO SCH (14:00)
--- NOTE | 2019-10-20 15:08 | Electrocardiogram Report ---
Test Reason : Blood Pressure : / mmHG Vent. Rate : 087 BPM Atrial Rate : 087 BPM P-R Int : 176 ms QRS Dur : 120 ms QT Int : 442 ms P-R-T Axes : 048 097 -03 degrees QTc Int : 531 ms Atrial-sensed ventricular-paced rhythm Abnormal ECG When compared with ECG of 05-JAN-2017 07:58, Electronic ventricular pacemaker has replaced Sinus rhythm Confirmed by Osmar Wills ([id number]) on 10/20/2019 3:08:02 PM Referred By: Rufina Doherty Confirmed By:Umesh Wills
--- NOTE | 2019-10-20 16:14 | Discharge Summary ---
Date of Service October 21, 2019 Admission HPI Per Admitting Provider pt admitted for elective BIV ICD; +fatigue, +SOB; improvement in swelling with the lasix Admission Exam Per Admitting Provider aaox3, NAD NC/AT, EOMI Supple No JVD Nrl S1/S2, No murmur CTA b/l no w/r/r soft nt/nd no LE edema b/l skin intact no focal deficits Principal Diagnosis NICM s/p BiV ICD Discharge Exam aaox3, NAD NC/AT, EOMI Supple No JVD Nrl S1/S2, No murmur CTA b/l no w/r/r soft nt/nd no LE edema b/l skin intact no focal deficits left pectoral incision intact, no hematoma mild ecchymosis Discharge Data Allergies Allergy/AdvReac Type Severity Reaction Status Date / Time bee venom protein (honey bee) Allergy Severe LOCALIZED Verified 10/20/19 07:13 SWELLING moxifloxacin Allergy Mild RASH Verified 10/20/19 07:13 Sulfa (Sulfonamide Allergy Unknown Unknown Verified 10/20/19 14:38 Antibiotics) adhesive tape Allergy Rash Verified 10/20/19 07:13 Procedures Performed Operation Date: 10/20/19 08:00 Actual Procedures p ICD Insertion Single or Dual - DO regine Babin Lead LV (No Priopr Implant) - Rufina Doherty DO s Venogram, Unilateral - Rufina Doherty DO Ordered Studies BiV ICD Interrogation: Normal lead testing since implant ECG: -BiV paced CXR: No PTX, leads in position 10/20/19 07:15 EP Lab Images for PACS ONCE Hospital Course (1) NICM (nonischemic cardiomyopathy): (2) Chronic systolic CHF (congestive heart failure), NYHA class 3: (3) LBBB (left bundle branch block): Total Time Total Time Spent Total Time Spent (In Minutes): 35 Total Time Includes: Examination of the Patient, Discharge Planning, Medication Reconciliation and Other Discharge Plan Discharge Items Patient Disposition: Home - Self-Care Reason For Visit: NICM; IBBB; CHF Discharge Diagnosis: NICM s/p BiV ICD Activity: As commented below Activity Comment: Do not raise the left elbow over the left shoulder for 1 month Lifting: No more than 10 pounds Lifting Comment: do not lift the more than 10 pounds with the left arm for 2 weeks Bathing: Keep incision dry Bathing Comment: keep dressing on & dry until wound check next week Sexual Activity: After two weeks Non-emergency contact: Sr. Strategic Sourcing Manager Call non-emergency contact if: you have any medication questions Follow-up/Referrals: Dane Reddy [Primary Care Provider] - Diet: Heart Healthy Addtl Attending Provider Instructions: Device and wound check as scheduled next week in [place] [facility] Please look at the device area daily for the next month and if you notice any swelling or redness or concerns call Dr. Doherty's office immediately Pending Studies at Discharge: No Stand-Alone Forms: [facility] Medications and DC Order Prescriptions: Continued coenzyme Q10 100 mg capsule 100 mg PO DAILY RF: 0 epinephrine 0.3 mg/0.3 mL auto-injector 0.3 mg subcut UD PRN (Reason: Allergic Reaction) RF: 0 magnesium glycinate 300 mg PO TID RF: 0 metformin 1,000 mg tablet 1,000 mg PO BID RF: 0 cyanocobalamin (vitamin B-12) [Vitamin B-12] 5,000 mcg tablet, sublingual 5,000 mcg SL DAILY RF: 0 Victoza 2-[place] 0.6 mg/0.1 mL (18 mg/3 mL) pen injector 1.8 mg SQ QAM RF: 0 Entresto 97-103 mg tablet 1 tab PO BID RF: 0 metoprolol tartrate 50 mg tablet 100 mg PO BID RF: 0 Adult Probiotic 3 billion cell capsule 3,000 mmu cells PO DAILY RF: 0 ascorbate calcium (vitamin C) 500 mg tablet 500 mg PO DAILY RF: 0 melatonin 3 mg Tablet 3 mg PO HS RF: 0 furosemide 20 mg Tablet 20 mg PO QAM RF: 0 zinc oxide 15 mg Tablet,Disintegrating 15 mg PO BID RF: 0 D-Ribose 1 dose PO DAILY RF: 0 Discharge Orders: Discharge Order (Routine); Ordered 10/21/19 Ordered By: Rufina Doherty Admission Data Admit Date/Time: 10/20/19 09:54 Attending Provider: Rufina Doherty Admit Provider: Rufina Doherty Primary Care Provider: Dane Reddy
[2019-10-20] MEDS: VICTOZA~ORDER AWAITING ACTION SCH ×2 (16:16→23:08)
[2019-10-20] MEDS: METFORMIN HCL 500 MG TAB PO SCH (16:18)
[2019-10-20] MEDS: OXYCODONE/ACETAMINOPHEN 5mg/325mg TAB PO PRN (19:49)
[2019-10-20] MEDS: SACUBITRIL-VALSARTAN 97-103 MG TAB PO SCH (20:17)
[2019-10-20] MEDS: METOPROLOL TARTRATE 100 MG TAB PO SCH (20:18)
[2019-10-20] MEDS ORDERED: ZINC OXIDE PO SCH (21:00)
[2019-10-21] MEDS: OXYCODONE/ACETAMINOPHEN 5mg/325mg TAB PO PRN ×2 (02:20→07:47)
--- NOTE | 2019-10-21 03:24 | Operative Report ---
DATE OF OPERATION: 10/20/2019 PREOPERATIVE DIAGNOSES: Nonischemic cardiomyopathy, left bundle branch block and chronic systolic heart failure [place] Heart Association class 3. POSTOPERATIVE DIAGNOSES: Nonischemic cardiomyopathy, left bundle branch block and chronic systolic heart failure [place] Heart Association class 3. PROCEDURE: Biventricular rate responsive implantable cardiac defibrillator under fluoroscopic guidance along with peripheral venogram and coronary sinus venogram. SURGEON: Rufina Doherty DO. ASSISTANTS: None. ANESTHESIA: Monitored anesthetic care administered via Anesthesiology. Please defer to their notes for complete details with the start time was 8:03, end time 10:30, a total of 4 mg of Versed, 200 mcg of fentanyl, 1200 mg of propofol. IV FLUIDS: 200 mL. ANTIBIOTICS: Two grams of Ancef. IV CONTRAST: 25 mL. COMPLICATIONS: None. CONDITION: Stable. URINE OUTPUT: Not applicable. SPECIMENS: None. FINDINGS: See below. DRAINS: None. BLOOD LOSS: 25 mL. INDICATIONS: This is a 54-year-old female with past medical history for nonischemic cardiomyopathy, left bundle branch block, chronic systolic heart failure [place] Heart Association class II, remote history of Lyme myocarditis where her ejection fraction in 2013 was also down and then it improved and then got worse again, sinus tachycardia, iron deficiency anemia and fibromyalgia. Due to her nonischemic cardiomyopathy, left bundle branch block and chronic systolic heart failure, she was recommended a biventricular defibrillator. CONSENT: Consent was obtained prior to the patient going into Electrophysiology lab. The patient was informed of the risks, benefits and alternative procedure. Risks include but not limited to sudden cardiac ; cardiac arrhythmia; myocardial infarction; cerebrovascular accident; ; injury to the blood vessels, chamber of the heart, lung; bleeding and infection. The patient understood these risks and agreed to the procedure as planned. Informed consent was obtained. DESCRIPTION OF THE PROCEDURE: The patient was brought into the Electrophysiology lab in a fasting state. She was connected to continuous media monitor. A timeout was performed to ensure patient identity and procedure correctly. The patient was prepped and draped over the left infraclavicular space in normal surgical standard fashion. Monitored anesthetic care was administered via Anesthesiology for complete details. She received prophylactic antibiotics prior to incision. [place] precautions were maintained throughout the procedure. A 10 mL of 1% lidocaine, bupivacaine mixture were given in the left deltopectoral groove. Incision was made in left deltopectoral groove. Blunt dissection was performed down to identify a cephalic vein. It was small, but I did isolate it. Then we set up and did a peripheral venogram using 10 mL of IV contrast diluted in 10 mL of saline to identify the axillary vein. Then axillary venous access was obtained through a needle stick and a guidewire was inserted without any resistance. I then went back to the cephalic vein and I nicked it with an 11 blade and I passed the Glidewire down and then I put the 8-Cuban sheath over that and took out the dilator and put another wire down for retained venous access. Then 8-Cuban sheath was removed and a 9.5-Cuban sheath was inserted over the Glidewire without any resistance. Dilator and guidewire were removed and the right ventricular defibrillator lead was then advanced into right ventricle and positioned into right ventricular apex under fluoroscopic guidance. There was adequate pacing and sensing thresholds and no diaphragmatic stimulation with high output pacing. The 9.5-Cuban sheath was peeled away and lead was fixated to pectoralis muscle using 0 silk suture. I tried and retained venous access through the cephalic. I tried to put an 8-Cuban sheath over it, but there was too much resistance because it was a small vessel, so I ended up using the axillary stick for both the left ventricle lead and the right atrial lead. So, an 8-Cuban sheath was inserted over the guidewire and the axillary venous stick. Dilator was removed and a second guidewire was inserted through the 8-Cuban sheath to allow for retained venous access. Sheath was removed, flushed, dilator reinserted over it and then it was reinserted along the guidewire through the axillary stick. The dilator and wire were removed and the right atrial lead was then advanced into right atrium and positioned right atrial appendage under fluoroscopic guidance. There was adequate pacing and sensing thresholds and no diaphragmatic stimulation with high output pacing. The 8-Cuban sheath was peeled away and lead was fixated to pectoralis muscle using 0 silk suture. Then a 9.5-Cuban sheath was inserted over the retained guidewire in the axillary venous access. Dilator and guidewire were removed. Then the MPX Medtronic coronary sinus outer sheath was advanced into the right atrium over a Glidewire. The Glidewire and dilator were removed. Then, the coronary sinus was cannulated using the Biosense Decapolar EP diagnostic catheter. Then the MPX was floated into the coronary sinus over that. A venogram of the coronary sinus was performed and there was a nice posterolateral branch that I was easily able to wire with a Whisper wire and then track the LV S-shaped lead over it into the branch. There was adequate pacing and sensing thresholds. There was some diaphragmatic stimulation at 10 volts, but none at 5. Then the MPX outer sheath was slit under fluoroscopic guidance followed then by the 9.5-Cuban sheath and the lead was fixated to pectoralis muscle using 0 silk suture. A defibrillator pocket was created using blunt dissection over the pectoralis muscle within the pectoralis fascia. The pocket was flushed with copious amounts of bacitracin saline wash and inspected for hemostasis. The defibrillator was then attached to the leads making sure that the pins were in appropriate position, passed set screw and set screws were all tightened. Defibrillator was then placed in the pocket making sure that the leads were lying flat beneath the device and a stay stitch using 0 silk suture was used to secure the device to pectoralis muscle. The incision was then closed in 3-layer fashion using 2-0 Vicryl interrupted suture, followed by 3-0 Vicryl interrupted suture, followed by a 4-0 Monocryl running stitch, followed by Dermabond and Telfa and a micropore dressing. EQUIPMENT: 1. The generator is a MedBiocycleia MRI Quad LANDSCAPE ARTIST-D SureScan, [id number], serial number [id number]. 2. Right atrial lead Medtronic 5076-52 cm, serial number [id number]. 3. Right ventricular lead, Medtronic 6935M-62 cm, serial number [id number]. 4. Left ventricular lead, Medtronic 4598-88 cm, serial number [id number]. INTRAOPERATIVE TESTIN. Right atrial lead: P waves 5.6 millivolts, impedance 739 ohms, threshold 0.5 volts at 0.5 milliseconds. 2. Right ventricular lead: R waves anywhere from 3.3 to 6 millivolts, impedance 518 ohms, threshold 0.3 volts at 0.5 milliseconds. 3. Left ventricular lead programmed LV1-LV2, impedance 685 ohms, threshold 1.1 volts at 0.5 milliseconds. FINAL MEASUREMENTS THROUGH THE DEVICE: 1. Right atrial lead: P-wave 3.5 millivolts, impedance 589 ohms, threshold 0.5 volts at 0.4 milliseconds. 2. Right ventricular lead: R waves 4 millivolts, impedance 475 ohms, threshold 0.5 volts at 0.4 milliseconds. 3. Left ventricular lead programmed LV2 to LV3, impedance 589 ohms, threshold is 1.5 volts at 0.4 milliseconds. 4. The RV coil is 85 ohms. FINAL PARAMETERS: DDD 60/140, right atrial and right ventricular amplitude 3.5 volts, pulse width 0.4 milliseconds, sensitivity 0.3 millivolts. Left ventricular amplitude 4 volts, pulse width 0.4 milliseconds. VT monitor zone 162 beats per minute for 32 detection intervals, VT zone at 188 beats per minute for 16 detection intervals and a VF zone at 207 beats per minute for 24-32 detection intervals. IMPRESSION: Successful implantation of a biventricular rate responsive implantable cardiac defibrillator under fluoroscopic guidance along with peripheral venogram and coronary sinus venogram secondary to nonischemic cardiomyopathy, left bundle branch block and chronic systolic heart failure [place] Heart Association class 3. PLAN: Monitor the patient overnight, 12-lead ECG, chest x-ray. She cannot lift the left elbow or left shoulder for 1 month. She cannot lift more than 10 pounds with the left arm for 2 weeks. She is to keep the dressing on and dry for the next week until her wound check in [facility]. She can continue her home medications. I attest to the content of the Intraoperative Record and any orders documented therein. Any exceptions are noted below. DARRION
[2019-10-21] MEDS: METFORMIN HCL 500 MG TAB PO SCH (07:43)
--- NOTE | 2019-10-21 07:43 | XRay Report ---
XR chest 2V PA/lateral HISTORY: Post pacemaker insertion. COMPARISON: Chest 01/03/2017. FINDINGS: No pneumothorax. No pleural effusions. A few bibasilar linear densities suggestive of subse gmental atelectasis. The heart is mildly enlarged. No evidence for pulmonary edema. Interval placemen t left-sided pacemaker/defibrillator. The leads appear intact. Prior cholecystectomy. IMPRESSION: 1. Status post left-sided pacemaker/defibrillator. No pneumothorax. 2. Mild cardiomegaly. ACT 112: Negative or not required by law. Electronically signed by: Mehdi Culp M.D. 10/21/2019 7:41 AM
[2019-10-21] MEDS: METOPROLOL TARTRATE 100 MG TAB PO SCH (07:44)
[2019-10-21] MEDS: SACUBITRIL-VALSARTAN 97-103 MG TAB PO SCH (07:44)
--- NOTE | 2019-10-21 07:48 | Anesthesiology Progress Note ---
Date of Service October 21, 2019 Anesthesia Post Procedure Vital Signs Vital Signs: Temp Pulse Pulse Resp BP Pulse Ox 10/21/19 04:08 90 10/21/19 03:32 36.5 C 83 20 103/71 95 10/20/19 23:40 36.8 C 89 18 104/72 94 10/20/19 19:32 37.4 C 94 H 16 132/69 97 10/20/19 16:50 118/78 10/20/19 16:44 36.8 C 97 H 18 121/64 96 10/20/19 16:30 95 H 10/20/19 14:39 36.7 C 92 H 18 120/80 99 10/20/19 13:30 87 18 116/75 99 10/20/19 13:00 86 18 119/79 99 10/20/19 12:30 86 18 117/79 99 10/20/19 12:15 88 18 118/79 99 10/20/19 12:00 87 18 124/84 99 10/20/19 11:45 88 18 122/78 99 10/20/19 11:30 86 18 123/81 99 10/20/19 11:15 86 18 119/81 99 10/20/19 11:00 88 18 102/75 99 10/20/19 10:45 92 H 18 120/77 99 Notes Mental Status: alert / awake / arousable and participated in evaluation Patient Amnestic to Procedure: Yes Nausea / Vomiting: adequately controlled Pain: adequately controlled Airway Patency, RR, SpO2: stable & adequate BP & HR: stable & adequate Hydration State: stable & adequate Anesthetic Complications: no major complications apparent and Pt Satisfied with anesthetic care Notes: The only thing to note is that the patient states that upon awakening from the anesthesia she felt pain all over in all extremities. This resolved with Morphine.
[2019-10-21] MEDS ORDERED: [UNRECOGNIZED DRUG - OTHER] PO SCH (09:00)
[2019-10-21] MEDS ORDERED: FUROSEMIDE 20 MG TAB PO SCH (09:00)
[2019-10-21] MEDS ORDERED: CYANOCOBALAMIN (VITAMIN B-12) 2,500 MCG TAB.SUBL SL SCH (09:00)
[2019-10-21] MEDS ORDERED: NON-FORMULARY MEDICATION (Coenzyme Q10 100 MG) PO SCH (09:00)
[2019-10-21] MEDS ORDERED: ASCORBIC ACID 500 MG TAB PO SCH (09:00)
[2019-10-21] MEDS ORDERED: LACTOBACILLUS COMBINATION NO 8 PO SCH (09:00)
[2019-10-21] MEDS ORDERED: D RIBOSE PO SCH (09:00)
[2019-10-21 09:32] LABS: BUN Creatinine Ratio 12.2 (10-20); Creatinine Clr Calc Pharmacy 82.8 ml/min; Est GFR (African American) 97.6; Est GFR (Non-African American) 84.2; Potassium 3.9 mmol/L (3.5-5.1)
[2019-10-21 10:00] LABS: Beta-Hydroxybutyrate 1.47 mg/dl (0.2-2.81)
== END 2019-10-21 10:52 | disposition home or self-care (01) ==
LOC: 2S 06:44 → EP 06:44
PROC: EPB.ICD (2019-10-20 08:00)